=== PATIENT | male | born 1990 | race Caucasian/White ===

== ENCOUNTER → 2020-07-10 15:26 | Outpatient (BNVA) | payer MEDICAID, SELFPAY | PROVIDERS: PCP Internal Medicine; Referring Provider Internal Medicine; Visit Provider Physician Assistant | DX: E65 Localized adiposity (principal); Z98.84 Bariatric surgery status | CPT/HCPCS: 99212 ==

== ENCOUNTER 2020-08-03 11:46 | Outpatient (REF) | payer MEDICAID, SELFPAY ==
[2020-08-03 12:24] LABS: Basophils Percent Auto 0.6 % (0-2); Eosinophils Percent Auto 0.6 % (0-4); Hematocrit 40.2 % (42-52); Hemoglobin 13.7 g/dl (14.0-18.0); Imm Gran Abs Auto 0.01 X10*3/uL (0.00-0.03); Imm Gran Pct Auto 0.2 % (0.0-0.4); Lymphocytes Absolute Auto 1.4 X10*3/uL (1.2-4.9); Lymphocytes Percent Auto 27.3 % (20-40); MANUAL DIFF FLAG NO; Mean Corpuscular HGB Conc 34.1 g/dl (31.0-36.0); Mean Corpuscular Hemoglobin 27.8 pg (27.0-33.0); Mean Corpuscular Volume 81.7 fL (80-98); Mean Platelet Volume 10.2 fL (9.4-12.4); Monocytes Absolute Auto 0.5 X10*3/uL (0.1-1.2); Monocytes Percent Auto 8.6 % (2-11); Neutrophils Absolute Auto 3.3 X10*3/uL (2.0-8.3); Neutrophils Percent Auto 62.7 % (45-73); Platelet Count 337 X10*3/uL (160-400); Red Blood Count 4.92 X10*6/uL (4.60-5.80); Red Cell Distribution Width 13.2 % (11.0-16.0); White Blood Count 5.2 X10*3/uL (4.8-10.8)
[2020-08-03 12:51] LABS: Cholesterol 134 mg/dL; HDL Cholesterol 60 mg/dL; Iron 185 mcg/dL (45-160); LDL Cholesterol Calculated 63 mg/dl; Percent Iron Saturation 68 % (15-50); Total Iron Binding Capacity 274 mcg/dL (228-428); Triglycerides 55 mg/dL; Unsaturated Iron Binding 89 ug/dL
[2020-08-03 12:59] LABS: Estimated Average Glucose 105 mg/dL; Hemoglobin A1c % 5.3 %
[2020-08-03 13:12] LABS: Ferritin 156 ng/mL (20-250); TSH reflex Free T4 0.34 mIU/mL (0.32-4.0); Vitamin D 25-OH Total 23.5 ng/mL (>30)
[2020-08-03 13:24] LABS: Folate 7.1 ng/mL (> or = 4.0); Vitamin B12 979 pg/mL (200-900)
[2020-08-04 15:07] LABS: Calcium (PTHI) 9.6 mg/dL (8.6-10.3); PTHI 40 pg/mL (14-64)
[2020-08-06 05:52] LABS: Zinc 103 mcg/dL (60-130)
[2020-08-08 20:58] LABS: Vitamin A 49 mcg/dL (38-98)
[2020-08-09 12:57] LABS: Vitamin B1 8 nmol/L (8-30)
== END 2020-08-03 11:47 | disposition home or self-care (01) ==
LOC: HO.LAB 11:46
PROVIDERS: PCP Internal Medicine; Visit Provider Physician Assistant
DX: M32.9 Systemic lupus erythematosus, unspecified (principal); E66.3 Overweight; Z68.35 Body mass index [BMI] 35.0-35.9, adult; Z98.84 Bariatric surgery status
CPT/HCPCS: 36415; 80061; 82306; 82607; 82728; 82746; 83036; 83525; 83540; 83970; 84425; 84443; 84590; 84630; 85025; 86140

== ENCOUNTER → 2020-08-27 09:27 | Outpatient (BNVA) | payer MEDICAID, SELFPAY | PROVIDERS: PCP Internal Medicine; Referring Provider Internal Medicine; Visit Provider Physician Assistant | DX: Z76.89 Persons encountering health services in other specified circumstances (principal) ==

== ENCOUNTER → 2022-07-05 14:43 | Outpatient (BNVA) | payer MEDICAID, SELFPAY | PROVIDERS: PCP Internal Medicine; Visit Provider Physician Assistant Surgical | DX: E66.3 Overweight (principal); L98.7 Excessive and redundant skin and subcutaneous tissue; Z68.28 Body mass index [BMI] 28.0-28.9, adult; Z90.3 Acquired absence of stomach [part of] | CPT/HCPCS: 99212 ==

== ENCOUNTER → 2022-08-03 15:12 | Outpatient (BNVA) | payer MEDICAID, SELFPAY | PROVIDERS: PCP Internal Medicine; Referring Provider Internal Medicine; Visit Provider Physician Assistant Surgical | DX: E66.3 Overweight (principal); L98.7 Excessive and redundant skin and subcutaneous tissue; Z90.3 Acquired absence of stomach [part of]; Z68.28 Body mass index [BMI] 28.0-28.9, adult | CPT/HCPCS: 99212 ==

== ENCOUNTER 2022-08-17 09:14 | Outpatient (REF) | payer MEDICAID, SELFPAY ==
[2022-08-17 09:42] LABS: MANUAL DIFF FLAG NO
[2022-08-17 10:03] LABS: Basophils Percent Auto 0.8 % (0-2); Eosinophils Absolute Auto 0.1 X10*3/uL (0.0-0.4); Eosinophils Percent Auto 2.1 % (0-4); Hematocrit 38.8 % (42.0-52.0); Hemoglobin 13.5 g/dl (14.0-18.0); Imm Gran Abs Auto 0.01 X10*3/uL (0.00-0.03); Imm Gran Pct Auto 0.2 % (0.0-0.4); Lymphocytes Absolute Auto 1.8 X10*3/uL (1.2-4.9); Lymphocytes Percent Auto 34.6 % (20-40); Mean Corpuscular HGB Conc 34.8 g/dl (31.0-36.0); Mean Corpuscular Hemoglobin 27.9 pg (27.0-33.0); Mean Corpuscular Volume 80.2 fL (80.0-98.0); Mean Platelet Volume 10.3 fL (9.4-12.4); Monocytes Absolute Auto 0.5 X10*3/uL (0.1-1.2); Monocytes Percent Auto 9.6 % (2-11); Neutrophils Absolute Auto 2.7 x10*3/uL (2.0-8.3); Neutrophils Percent Auto 52.7 % (45-73); Platelet Count 303 X10*3/uL (160-400); Red Blood Count 4.84 X10*6/uL (4.60-5.80); Red Cell Distribution Width 13.1 % (11.0-16.0); White Blood Count 5.2 X10*3/uL (4.8-10.8)
[2022-08-17 10:39] LABS: Estimated Average Glucose 100 mg/dL; Hemoglobin A1c % 5.1 %
[2022-08-17 11:11] LABS: Alanine Aminotransferase 21 U/L (0-40); Albumin Level 4.2 g/dL (3.5-5.0); Alkaline Phosphatase 52 U/L (39-117); Anion Gap 9 (12-20); Aspartate Amino Transferase 15 U/L (5-37); Bilirubin Total 0.9 mg/dL (0.0-1.0); Blood Urea Nitrogen 9 mg/dL (9-16); C Reactive Protein < 0.10 mg/dL (< or = 0.50); Calcium 9.3 mg/dL (8.4-10.2); Carbon Dioxide 30 mmol/L (22-29); Chloride 104 mmol/L (96-108); Cholesterol 148 mg/dL; Estimated Glomerular Filt Rate > 60; Ferritin 103 ng/mL (20-250); Glucose Random 103 mg/dL (60-115); HDL Cholesterol 57 mg/dL; Insulin 7 uU/mL (2-29); Iron 136 mcg/dL (45-160); LDL Cholesterol Calculated 79 mg/dl; Percent Iron Saturation 52 % (15-50); Potassium 4.1 mmol/L (3.3-5.1); Sodium 139 mmol/L (135-145); TSH reflex Free T4 0.85 uIU/mL (0.32-4.0); Total Iron Binding Capacity 260 mcg/dL (228-428); Total Protein 6.7 g/dL (6.5-8.0); Triglycerides 63 mg/dL; Unsaturated Iron Binding 124 ug/dL
[2022-08-17 11:12] LABS: Folate 11.4 ng/mL (> or = 4.0); Vitamin B12 899 pg/mL (200-900)
[2022-08-18 14:14] LABS: Calcium (PTHI) 9.5 mg/dL (8.6-10.3); PTHI 59 pg/mL (16-77)
[2022-08-22 02:29] LABS: Zinc 67 mcg/dL (60-130)
[2022-08-23 10:39] LABS: Vitamin A 51 mcg/dL (38-98)
[2022-08-24 15:54] LABS: Vitamin B1 13 nmol/L (8-30)
== END 2022-08-17 09:15 | disposition home or self-care (01) ==
LOC: HO.LAB 09:14
PROVIDERS: PCP Internal Medicine; Visit Provider Physician Assistant Surgical
DX: Z90.3 Acquired absence of stomach [part of] (principal)
CPT/HCPCS: 36415; 80053; 80061; 82306; 82607; 82728; 82746; 83036; 83525; 83540; 83970; 84425; 84443; 84590; 84630; 85025; 86140

== ENCOUNTER → 2022-09-02 08:12 | Outpatient (BNVA) | payer MEDICAID, SELFPAY | PROVIDERS: PCP Internal Medicine; Visit Provider Surgery | DX: Z13.89 Encounter for screening for other disorder (principal) ==

== ENCOUNTER 2022-09-14 11:55 | Outpatient (REF) | payer MEDICAID, SELFPAY ==
[2022-09-14 12:17] LABS: MANUAL DIFF FLAG NO
[2022-09-14 13:01] LABS: Basophils Percent Auto 0.7 % (0-2); Eosinophils Absolute Auto 0.1 X10*3/uL (0.0-0.4); Eosinophils Percent Auto 1.3 % (0-4); Hematocrit 39.4 % (42.0-52.0); Hemoglobin 13.8 g/dl (14.0-18.0); Imm Gran Abs Auto 0.03 X10*3/uL (0.00-0.03); Imm Gran Pct Auto 0.5 % (0.0-0.4); Lymphocytes Absolute Auto 1.5 X10*3/uL (1.2-4.9); Lymphocytes Percent Auto 27.7 % (20-40); Mean Corpuscular Hemoglobin 28.4 pg (27.0-33.0); Mean Corpuscular Volume 81.1 fL (80.0-98.0); Mean Platelet Volume 10.7 fL (9.4-12.4); Monocytes Absolute Auto 0.5 X10*3/uL (0.1-1.2); Monocytes Percent Auto 9.3 % (2-11); Neutrophils Absolute Auto 3.3 x10*3/uL (2.0-8.3); Neutrophils Percent Auto 60.5 % (45-73); Platelet Count 337 X10*3/uL (160-400); Red Blood Count 4.86 X10*6/uL (4.60-5.80); Red Cell Distribution Width 12.9 % (11.0-16.0); White Blood Count 5.5 X10*3/uL (4.8-10.8)
[2022-09-14 13:08] LABS: Estimated Average Glucose 94 mg/dL; Hemoglobin A1c % 4.9 %; INTERNATIONAL NORM RATIO 1.1 (0.9-1.1); Prothrombin Time 12.3 SEC (10.0-13.1)
[2022-09-14 13:10] LABS: Partial Thromboplastin Time 33.3 SEC (26.0-36.4)
[2022-09-14 13:41] LABS: Alanine Aminotransferase 20 U/L (0-40); Albumin Level 4.3 g/dL (3.5-5.0); Alkaline Phosphatase 52 U/L (39-117); Anion Gap 10 (12-20); Aspartate Amino Transferase 15 U/L (5-37); Bilirubin Total 0.8 mg/dL (0.0-1.0); Blood Urea Nitrogen 12 mg/dL (9-16); Calcium 9.6 mg/dL (8.4-10.2); Carbon Dioxide 28 mmol/L (22-29); Chloride 106 mmol/L (96-108); Estimated Glomerular Filt Rate > 60; Glucose Random 102 mg/dL (60-115); Sodium 140 mmol/L (135-145)
== END 2022-09-14 11:56 | disposition home or self-care (01) ==
LOC: HO.LAB 11:55
PROVIDERS: PCP Internal Medicine; Visit Provider Surgery
DX: K91.2 Postsurgical malabsorption, not elsewhere classified (principal); Z90.3 Acquired absence of stomach [part of]
CPT/HCPCS: 36415; 80053; 83036; 85025; 85610; 85730

== ENCOUNTER 2022-09-22 07:34 | Day surgery (SDC) | payer MEDICAID, SELFPAY ==
[2022-09-14 11:14] VITALS: BMI 27.8
--- NOTE | 2022-09-17 00:44 | MHC.SHP ---
Pre-Procedural Eval Section A Date of Service: 09/17/22 The patient is an INPATIENT: No The History & Physical has been completed within 30 days and I have reviewed it.: Yes Section B Chief Complaint: Excessive and redundant skin and subcutaneous tiss Relevant Family History (Specify if Yes): No Relevant Social History: None Present Medications: None Medical History: No relevant PMH History of Previous Operations: Relevant previous surgery/procedure and date(s) (Lap sleeve gastrectomy) Allergies: Allergies Allergy/AdvReac Type Severity Reaction Status Date / Time No Known Allergies Allergy Verified 09/14/22 10:38 Review of Systems Sugical H&P ROS: Negative: Constitution, Cardiovascular, Respiratory, Neurological, Psychiatric, Hem-Onc, Allergic/Immunologic, Gastrointestinal, Genitourinary, Musculoskeletal, Integumentary, Endocrine and Eyes/Ears/Nose/Throat Exam Surgical H&P Exam: Normal: HEENT, Normal: Heart, Normal: Lungs, Normal: Extremities, Normal: Abdomen, Normal: Skin and Normal: Neurological Plan Diagnosis/Plan: Unchanged I have reviewed the history and physical and performed a pertinent physical examination on my patient. No changes have occurred unless specified. Time Spent With Patient Time: Total time managing care of this patient today ____ minutes.
--- NOTE | 2022-09-21 10:20 | HO.ANESPROP2 ---
Documented by User: Shahnaz Flores NP 09/21/22 10:21 HPI - Anesthesia Eval Consult details Narrative: 32yo M for Panniculectomy s/p gastric sleeve 08/2019 PMF Active Problems Active Problems: All Active Problems (Updated 09/14/22 @ 10:37 by Tammie Fuller RN) History of sleeve gastrectomy (Acute) Overweight (Acute) Excess skin (Acute) Postgastrectomy malabsorption (Acute) Panniculitis (Acute) Past Medical History Medical History Hx of low back pain Lumbar disc herniation Family History Family History Father HTN (hypertension) DM (diabetes mellitus) Mother HTN (hypertension) Brother No problems noted. Brother No problems noted. Brother No problems noted. Brother No problems noted. Sister No problems noted. Son No problems noted. Surgical History Surgical History H/O tooth extraction Hx of colonoscopy S/P laparoscopic sleeve gastrectomy Social History Social History Are you a primary aged or disabled care worker to a significant other at home: No Do you presently have visiting nurse or other home services: No Alcohol intake: current Alcohol intake frequency: does not drink Patient Tobacco Use Status: Never used Tobacco Use of substances other than those prescribed or required for medical reasons: No Have you been hit, kicked, punched, or otherwise hurt by someone within the past year? If so, by whom?: No Are you DNR?: No Advance Directives: No Advance Directives Information Provided: Yes Advance Directives on File: No Recently lost weight without trying: No How much weight loss: 34pounds or more Eating poorly because of decreased appetite: No Nutrition screen score: 4 Nutrition Risks: No Nutritional Risk Poor oral hygiene: No Meds Allergies Allergy/AdvReac Type Severity Reaction Status Date / Time No Known Allergies Allergy Verified 09/14/22 10:38 Exam Exam Date and Time: September 21, 2022 1020 Height,Weight and Vital Signs: Height 5 ft 11 in Weight 90.718 kg Pertinent Lab Results Pertinent Lab Results: Laboratory Tests 09/14/22 12:10 Blood Type A Positive Antibody Screen NEGATIVE Assessment and Plan Assessment Anesthesia Assessment: Chart Reviewed Documented by User: Grace Zazueta MD 09/22/22 10:01 [facility] Past Medical History Medical History Hx of low back pain Lumbar disc herniation Family History Family History Father HTN (hypertension) DM (diabetes mellitus) Mother HTN (hypertension) Brother No problems noted. Brother No problems noted. Brother No problems noted. Brother No problems noted. Sister No problems noted. Son No problems noted. Surgical History Surgical History H/O tooth extraction Hx of colonoscopy S/P laparoscopic sleeve gastrectomy History of Problems with Anesthesia: No Social History Social History Are you a primary aged or disabled care worker to a significant other at home: No Do you presently have visiting nurse or other home services: No Alcohol intake: current Alcohol intake frequency: does not drink Patient Tobacco Use Status: Never used Tobacco Use of substances other than those prescribed or required for medical reasons: No Have you been hit, kicked, punched, or otherwise hurt by someone within the past year? If so, by whom?: No Are you DNR?: No Advance Directives: No Advance Directives Information Provided: Yes Advance Directives on File: No Recently lost weight without trying: No How much weight loss: 34pounds or more Eating poorly because of decreased appetite: No Nutrition screen score: 4 Nutrition Risks: No Nutritional Risk Poor oral hygiene: No Meds Allergies Allergy/AdvReac Type Severity Reaction Status Date / Time No Known Allergies Allergy Verified 09/14/22 10:38 Exam Airway Mallampati Class: II TM Dist: >3cm Neck ROM: Full Loose/Missing/Broken Teeth: No Heart: RRR Lungs: CTA Assessment and Plan Assessment Anesthesia Assessment: Anesthesia Plan Discussed Final Anesthetic Review History of Problems with Anesthesia: No NPO: Yes ASA Class: II Final Preanesthetic Review: Meds/Allgs Chart Reviewed, Consent Obtained/Reviewed and Anes Risks/Benef Reviewed Patient Risk: Low Procedure Risk: Intermediate Anesthetic Plan Anesthetic Plan: GA Disposition: Standard PACU
[2022-09-21 13:07] LABS: COVID-19 Test Negative (Negative); IDNOW Serial# 9DB6401D
[2022-09-22] VITALS (11 sets, daily range): BP systolic 110–143; BP diastolic 47–96; PULSE 58–124; RESP 14–18; TEMP 36.4–36.6; O2SAT 98–100
[2022-09-22] MEDS: Lactated Ringers 1,000 ML 100 ML IVCONT (08:39)
[2022-09-22] MEDS: Lactated Ringers 1,000 ML 80 ML IVCONT (08:39)
--- NOTE | 2022-09-22 11:39 | PM.OP ---
Brief Operative Note Date of Service: 09/22/22 Pre-op diagnosis: Excessive skin and panniculitis Post-op diagnosis: same Procedure: PROCEDURE: Panniculectomy with umbilical transposition and bilateral subcutaneous fat flaps INDICATION: This a 30 year old male who underwent laparoscopic sleeve gastrectomy on 08/27/2019. She had an excellent result achieving a BMI of 28 kg/m2 with a total weight loss of 89.4lbs, or 30.89% of her TBWL. As a result, she has developed panniculitis which has not resolved despite continuous use of clotrimazole ointment as well as skin irritation. On exam she has extreme skin laxity due to massive weight loss, with the abdominal pannus completely hanging 3cm below the pubis. Panniculectomy was recommended. We discussed the two options for the panniculectomy of using a combined vertical and horizontal incisions or just a horizontal (bikini) incision. It was my recommendation to do only horizontal incision based on her body habitus and skin laxity. The patient agreed with this. Risks and complications were discussed with the patient including bleeding, infection, umbilical loss, flap necrosis, asymmetry, dehiscence, seroma, VTE. The patient understood the risks and was in agreement to proceed with surgery. PROCEDURE: The incisions were appropriately marked at the preop area with the patient standing and laying down. After induction of general anesthesia a Luis catheter and pneumatic compression devices were placed. The patient was prepped and draped in the usual sterile manner and the incisions were marked again and confirmed. The skin was infiltrated with lidocaine and epinephrine. The #10 blade scalpel was used for the large incisions and the #15 blade scalpel for the umbilicus. Cautery was used to divide the subcutaneous tissues until the fascia was identified. Then I used the Thunderbeat (Olympus) to separate the pannus from the fascia. The inferior incision was made initially and I mobilized the flap for a several centimeters cephalad to the umbilicus. The umbilicus was incised circumferentially and detached from the surrounding tissues all the way to the fascia while its stalk was preserved. With the patient in reflex position I confirmed that the skin flaps were appropriate and would allow for the tissues to come together with reasonable tension. At that point a horizontal incision was made 4 cm above the umbilicus. #10 blade was used for the skin, cautery for the dermis and the Thunderbeat for the remaining tissues. A subcutaneous fat flap was raised from the upper skin flap in order to fill the space under the skin and support the closure of the two flaps. In addition the inferior flap was mobilized caudally for a few centimeters to create a space for the subcutaneous fat flap as well as relieve tension from the closure. A circumferential incision was made at the area where the umbilicus would be re-implanted. The umbilicus was appropriately oriented and was delivered through the defect and was secured in place with a Burr. No bleeding was noted anywhere. One MARINA drain was placed from the left corner of the horizontal incision across the wound and was secured in place with a silk suture. A total of 14ml of Zynrelef was applied on top of the fascia and under the subcutaneous fat flaps. The subcutaneous fat flap was secured under the inferior flap with several interrupted 3.0 Monocryl sutures. The two flaps were brought together and were attached at the midline of the horizontal incision with a #3.0 Monocryl suture. At that point the umbilicus was properly oriented and was re-approximated to the skin with 8 interrupted 3.0 Monocryl sutures. In a similar fashion the skin flaps were re-approximated with multiple 3.0 Monocryl sutures. The skin was closed in all incisions and umbilicus with 4.0 Monocryl sutures. Steri-strips, xeroform gauzes and gauzes were used to cover the incisions. An abdominal binder was also placed. The was awaken and was transferred to the recover room in a stable condition. I was present and performed the entire procedure. Susannah Donnelly was the corporate administrative assistant. Jose De Jesus Morales MD, PhD, FACS Surgeon: Tae Morales MD Surgeon: Tae Morales MD Anesthesia: GETA, local and other (14ml Zynrelef) Was an Patient Care Coordinator used for this Procedure?: No Patient Care Coordinator: Janak Donnelly Estimated blood loss (mL): 10 IV fluids (mL): 2,700 Urine output (mL): 0 Pathology: other (Abdominal pannus) Condition: stable Disposition: PACU
[2022-09-22] MEDS: HYDROmorphone HCl 0.5 MG/0.5 ML SYRINGE 0.25 MG IVPUSH ×2 (16:18→16:30)
--- NOTE | 2022-09-23 13:04 | W.MHC.F2F ---
Service Date Service Date: 09/23/22 Encounter Date of encounter: 09/22/22 Reasons for Services Signs and symptoms assessed: abdominal incision Reason for long term: postoperative assessment and/or care Homebound: Leaving the home is medically contraindicated at this time without the asist of a device and/or another person due th the listed conditions above and below. Reason homebound: unable to drive Certification: Based on the above findings, I certify that this patient is confined to the home and needs intermittent long term care, physical therapy and/or speech therapy, or continues to need occupational therapy. The patient is under my care, and I have initiated the establishment of the plan of care. The patient will be followed by a physician who will periodically review the plan of care. Time Spent With Patient Time: Total time managing care of this patient today ____ minutes.
== END 2022-09-22 18:10 ==
LOC: HO.SSS 07:34
PROVIDERS: Physician Assistant Surgical; PCP Internal Medicine; Visit Provider Surgery
PROC: 0JB80ZZ Excision of Abdomen Subcutaneous Tissue and Fascia, Open Approach (ICD-10-PCS; CPT 15830; principal; 2022-09-22 10:30)
DX: L98.7 Excessive and redundant skin and subcutaneous tissue (principal); M79.3 Panniculitis, unspecified; K91.2 Postsurgical malabsorption, not elsewhere classified; Z90.3 Acquired absence of stomach [part of]; Z98.84 Bariatric surgery status; Z20.822 Contact with and (suspected) exposure to COVID-19
CPT/HCPCS: 15830; 15847; 36415; 80053; 83036; 85025; 85610; 85730; 86850; 86900; 86901; 87635; 88304; C9088; J0131; J0690; J1100; J1170; J2250; J2405; J3010; J3370

== ENCOUNTER → 2022-09-30 08:46 | Outpatient (BNVA) | payer MEDICAID, SELFPAY | PROVIDERS: PCP Internal Medicine; Visit Provider Physician Assistant Surgical | DX: E66.3 Overweight (principal); Z68.27 Body mass index [BMI] 27.0-27.9, adult; Z98.84 Bariatric surgery status; Z90.3 Acquired absence of stomach [part of] | CPT/HCPCS: 99212 ==

== ENCOUNTER → 2022-10-10 09:18 | Outpatient (BNVA) | payer MEDICAID, SELFPAY | PROVIDERS: PCP Internal Medicine; Visit Provider Physician Assistant Surgical | DX: E66.3 Overweight (principal); Z68.27 Body mass index [BMI] 27.0-27.9, adult; Z98.84 Bariatric surgery status; Z98.890 Other specified postprocedural states | CPT/HCPCS: 99212 ==

== ENCOUNTER → 2022-10-12 12:26 | Outpatient (BNVA) | payer MEDICAID, SELFPAY | PROVIDERS: PCP Internal Medicine; Referring Provider Internal Medicine; Visit Provider Physician Assistant Surgical | DX: E66.3 Overweight (principal); Z90.3 Acquired absence of stomach [part of]; Z98.890 Other specified postprocedural states | CPT/HCPCS: 99212 ==

== ENCOUNTER → 2022-10-18 10:00 | Outpatient (BNVA) | payer MEDICAID, SELFPAY | PROVIDERS: PCP Internal Medicine; Visit Provider Physician Assistant Surgical | DX: E66.3 Overweight (principal); Z68.27 Body mass index [BMI] 27.0-27.9, adult; Z90.3 Acquired absence of stomach [part of]; Z98.890 Other specified postprocedural states | CPT/HCPCS: 99212 ==

== ENCOUNTER → 2022-11-07 09:03 | Outpatient (BNVA) | payer MEDICAID, SELFPAY | PROVIDERS: PCP Internal Medicine; Visit Provider Physician Assistant Surgical | DX: E66.3 Overweight (principal); Z90.3 Acquired absence of stomach [part of]; Z98.890 Other specified postprocedural states; Z68.27 Body mass index [BMI] 27.0-27.9, adult | CPT/HCPCS: 99212 ==

== ENCOUNTER → 2022-11-18 13:34 | Outpatient (BNVA) | payer MEDICAID, SELFPAY | PROVIDERS: PCP Internal Medicine; Visit Provider Physician Assistant Surgical | DX: E66.9 Obesity, unspecified (principal); R18.8 Other ascites; Z68.27 Body mass index [BMI] 27.0-27.9, adult; Z98.890 Other specified postprocedural states | CPT/HCPCS: 99212 ==

== ENCOUNTER 2022-12-09 12:25 | Outpatient (REF) | payer MEDICAID, SELFPAY ==
--- NOTE | ~2022-12-09 | US_ITS ---
EXAMINATION: US PELVIC, LIMITED/FOLLOW UP CLINICAL INFORMATION: Lower abdominal discomfort under hemicolectomy. COMPARISON: None available. TECHNIQUE: Limited ultrasound imaging was performed midline pelvis 3 cm inferior to umbilicus. FINDINGS: There is a complex cystic fluid collection with internal echoes seen in the palpable area likely a small seroma. No increased vascularity seen. US/US pelvic limited IMPRESSION: Likely small seroma inferior to umbilicus in midline abdomen.
== END 2022-12-09 12:26 | disposition home or self-care (01) ==
LOC: HO.US 12:25
PROVIDERS: PCP Internal Medicine; Visit Provider Physician Assistant Surgical
DX: R19.00 Intra-abdominal and pelvic swelling, mass and lump, unspecified site (principal)
CPT/HCPCS: 76857

== ENCOUNTER → 2022-12-16 12:26 | Outpatient (BNVA) | payer MEDICAID, SELFPAY | PROVIDERS: PCP Internal Medicine; Visit Provider Physician Assistant Surgical | DX: L76.34 Postprocedural seroma of skin and subcutaneous tissue following other procedure (principal) | CPT/HCPCS: 99212 ==

== ENCOUNTER → 2023-01-03 11:21 | Outpatient (BNVA) | payer MEDICAID, SELFPAY | PROVIDERS: PCP Internal Medicine; Visit Provider Physician Assistant Surgical | DX: E66.3 Overweight (principal); R18.8 Other ascites; Z90.3 Acquired absence of stomach [part of]; Z98.890 Other specified postprocedural states; Z68.27 Body mass index [BMI] 27.0-27.9, adult | CPT/HCPCS: 99212 ==

== ENCOUNTER 2023-01-24 08:28 | Outpatient (REF) | payer MEDICAID, SELFPAY ==
--- NOTE | ~2023-01-24 | CT_ITS ---
EXAMINATION: CT ABDOMEN AND PELVIS WITH CONTRAST CLINICAL INFORMATION: Ascites. COMPARISON: Pelvic ultrasound 12/09/2022. There is a complex cystic fluid collection with internal echoes seen in the palpable area likely a small seroma. Abdominal ultrasound 08/19/2019. TECHNIQUE: Multidetector volumetric images were obtained from the superior aspect of the liver through the pubic symphysis following administration 85 mL of Omnipaque 350 intravenous contrast. Sagittal and coronal reformatted images were obtained on the technologist's workstation. Oral contrast: No This CT examination was performed using dose optimization techniques as appropriate, variously including the following: *Automated exposure control *Adjustment of mA and/or kV according to patient size (this includes techniques or standardized protocols for targeted exams where dose is matched to indication/reason for exam; i.e. extremities or head) *Use of iterative reconstruction technique DLP: 504 mGy-cm FINDINGS: LUNG BASES: The visualized lung bases show no worrisome finding. 2 tiny 1 to 2 mm sized punctate densities, possibly calcified, at the right lung base (6:3 and 9). LIVER, GALLBLADDER, AND BILIARY TREE: The liver is normal in size, shape, and attenuation. No focal hepatic lesion or biliary ductal dilatation is present. The gallbladder is contracted but otherwise unremarkable with no evidence of radiopaque gallstones, gallbladder wall thickening, or obvious pericholecystic inflammatory changes. PANCREAS: Unremarkable. SPLEEN: Unremarkable. ADRENAL GLANDS: Unremarkable. KIDNEYS AND URETERS: The kidneys are normal in size, shape, and attenuation. No hydronephrosis, hydroureter, or calculi seen. No perinephric stranding. BLADDER: Unremarkable. GASTROINTESTINAL TRACT: Postsurgical changes are seen in the stomach with question of a gastric sleeve. The small and large bowel are unremarkable. The appendix is present it is quite small. There is no evidence of appendicitis. ABDOMINAL WALL: There is a midline abdominal wall fluid collection seen in the infraumbilical region corresponding to the collection seen on the ultrasound. This measures 8.1 x 4.6 x 7.4 cm. At the time of the prior ultrasound, this was larger measuring 9.5 x 9.0 x 4.0 cm. The collection has a mildly thickened wall at about 3 mm. Some surrounding inflammatory change is seen, along with a few surgical clips. Findings are consistent with a seroma. No fistulous connections to abdominal or pelvic contents seen. LYMPH NODES: No retroperitoneal lymphadenopathy. VASCULAR: Unremarkable. PELVIC VISCERA: The prostate and seminal vesicles are unremarkable. OSSEOUS STRUCTURES: Unremarkable. CT/CT abdomen pelvis w IV con IMPRESSION: 1. Fluid collection in the anterior abdominal wall consistent with a seroma decreased in size when compared to the 12/09/2022 ultrasound. 2. Other incidental findings as described above. Fleischner guidelines were followed.
[2023-01-24] MEDS: iohexoL 350 MG/ML 100 ML INFUS..BTL IV (10:41)
[2023-01-24] MEDS: Barium Sulfate Oral (Mocha) 450 ML ORAL.SUSP 900 ML PO (10:42)
== END 2023-01-24 08:29 | disposition home or self-care (01) ==
LOC: HO.CT 08:28
PROVIDERS: PCP Internal Medicine; Visit Provider Physician Assistant Surgical
DX: R18.8 Other ascites (principal); Z98.890 Other specified postprocedural states
CPT/HCPCS: 74177; Q9967

== ENCOUNTER → 2023-01-27 13:48 | Outpatient (BNVA) | payer MEDICAID, SELFPAY | PROVIDERS: PCP Internal Medicine; Visit Provider Physician Assistant Surgical | DX: E66.3 Overweight (principal); R18.8 Other ascites; Z90.3 Acquired absence of stomach [part of]; Z98.890 Other specified postprocedural states; Z68.28 Body mass index [BMI] 28.0-28.9, adult | CPT/HCPCS: 99212 ==

== ENCOUNTER 2023-02-02 14:40 | Outpatient (REF) | payer MEDICAID, SELFPAY ==
--- NOTE | ~2023-02-02 | US_ITS ---
PROCEDURE: US-GUIDED FINE NEEDLE ASPIRATION - ABDOMINAL WALL SEROMA DRAINAGE CLINICAL INFORMATION: Abdominal wall seroma post surgery, in September 2022. COMPARISON: CT abdomen and pelvis 01/24/2023. TECHNIQUE/PROCEDURE: Following explaining ultrasound-guided abdominal wall seroma drainage procedure, benefits and risk, a written consent was obtained. Patient was placed supine on ultrasound stretcher and preliminary ultrasound imaging was obtained. An optimal site was selected and marked midline in the infraumbilical region. The area was cleaned and draped in the usual sterile manner with 2% chlorhexidine solution. 1% lidocaine was injected at the puncture site. Through a small skin incision, a 5-Turkmen short FoneSenseeh catheter was advanced from the skin into the collection and several directions to loosen the septations. The stylet was withdrawn and catheter connected to vacuum bottle via connecting cannula. After obtaining a significant amount of red dark fluid, the catheter was withdrawn and complete hemostasis achieved. Simple dressing applied postprocedure. Patient tolerated the procedure extremely well. US/US guided fine needle asp FINDINGS/IMPRESSION: There is a large multiloculated seroma along infraumbilical segment of abdominal wall. Approximately 100 mL of reddish dark fluid was drained under ultrasound guidance from this loculated collection. None of the fluid was sent to lab.
[2023-02-02] MEDS: Lidocaine HCl 1 % MPF 5 ML VIAL SUBCUT (16:01)
== END 2023-02-02 14:41 | disposition home or self-care (01) ==
LOC: HO.US 14:40
PROVIDERS: PCP Internal Medicine; Visit Provider Physician Assistant Surgical
DX: R18.8 Other ascites (principal)
CPT/HCPCS: 10005

== ENCOUNTER → 2023-02-07 11:25 | Outpatient (BNVA) | payer MEDICAID, SELFPAY | PROVIDERS: PCP Internal Medicine; Visit Provider Physician Assistant Surgical | DX: E66.3 Overweight (principal); Z68.28 Body mass index [BMI] 28.0-28.9, adult; Z98.84 Bariatric surgery status; Z90.3 Acquired absence of stomach [part of]; Z98.890 Other specified postprocedural states | CPT/HCPCS: 99212 ==

== ENCOUNTER → 2023-02-21 09:05 | Day surgery (SDC) | payer MEDICAID, SELFPAY ==
--- NOTE | ~2023-02-21 | US_ITS ---
EXAMINATION: Ultrasound-guided drain CLINICAL INFORMATION: recurrent abdominal wall seroma after panniculectomy COMPARISON: Previous ultrasound guided aspiration 02/02/[address] of the abdomen and pelvis 01/24/2023 TECHNIQUE: Procedure and risks and benefits including bleeding and infection were discussed with the patient and informed consent was obtained. The right lower abdominal abdomen was prepped and draped in the usual sterile fashion. The skin and soft tissues were anesthetized with 1% lidocaine plain. Using ultrasound guidance and a 5 [place] one-step system, access to the fluid collection was obtained. Over an 035 wire, an 8.5 [place] pigtail drain was positioned. 50 mL of old bloody fluid was aspirated. Specimen was sent for Gram stain and culture. Patient received Versed 1 mg and fentanyl 50 mcg intravenously during the procedure. Conscious sedation was provided by registered nurse under my direct supervision with continuous hemodynamic monitoring. Total [id number] contact sedation time was 25 minutes. FINDINGS: There is a complex multiloculated fluid collection in the lower abdominal wall. This measures approximately 4 x x 7 cm in longitudinal, AP and transverse dimension and has a thick wall. This is similar-appearing to 02/02/2023 exam. US/US guided fine needle asp IMPRESSION: Ultrasound-guided drainage of complex multiloculated fluid collection in the lower abdominal wall.
--- NOTE | ~2023-02-21 | US_ITS ---
EXAMINATION: Ultrasound-guided drain CLINICAL INFORMATION: recurrent abdominal wall seroma after panniculectomy COMPARISON: Previous ultrasound guided aspiration 02/02/[address] of the abdomen and pelvis 01/24/2023 TECHNIQUE: Procedure and risks and benefits including bleeding and infection were discussed with the patient and informed consent was obtained. The right lower abdominal abdomen was prepped and draped in the usual sterile fashion. The skin and soft tissues were anesthetized with 1% lidocaine plain. Using ultrasound guidance and a 5 [place] one-step system, access to the fluid collection was obtained. Over an 035 wire, an 8.5 [place] pigtail drain was positioned. 50 mL of old bloody fluid was aspirated. Specimen was sent for Gram stain and culture. Patient received Versed 1 mg and fentanyl 50 mcg intravenously during the procedure. Conscious sedation was provided by registered nurse under my direct supervision with continuous hemodynamic monitoring. Total [id number] contact sedation time was 25 minutes. FINDINGS: There is a complex multiloculated fluid collection in the lower abdominal wall. This measures approximately 4 x x 7 cm in longitudinal, AP and transverse dimension and has a thick wall. This is similar-appearing to 02/02/2023 exam. US/US drain soft tissue w imaging IMPRESSION: Ultrasound-guided drainage of complex multiloculated fluid collection in the lower abdominal wall.
[2023-02-21 09:19] VITALS: BMI 26.9
[2023-02-21 10:03] LABS: MANUAL DIFF FLAG NO
[2023-02-21 10:11] LABS: Basophils Percent Auto 0.6 % (0-2); Eosinophils Absolute Auto 0.1 X10*3/uL (0.0-0.4); Eosinophils Percent Auto 1.9 % (0-4); Hematocrit 38.2 % (42.0-52.0); Hemoglobin 13.1 g/dl (14.0-18.0); Imm Gran Abs Auto 0.01 X10*3/uL (0.00-0.03); Imm Gran Pct Auto 0.2 % (0.0-0.4); Lymphocytes Absolute Auto 1.5 X10*3/uL (1.2-4.9); Lymphocytes Percent Auto 28.6 % (20-40); Mean Corpuscular HGB Conc 34.3 g/dl (31.0-36.0); Mean Corpuscular Hemoglobin 27.3 pg (27.0-33.0); Mean Corpuscular Volume 79.6 fL (80.0-98.0); Mean Platelet Volume 10.2 fL (9.4-12.4); Monocytes Absolute Auto 0.6 X10*3/uL (0.1-1.2); Monocytes Percent Auto 11.8 % (2-11); Neutrophils Percent Auto 56.9 % (45-73); Platelet Count 278 X10*3/uL (160-400); Red Cell Distribution Width 13.5 % (11.0-16.0); White Blood Count 5.2 X10*3/uL (4.8-10.8)
[2023-02-21 10:23] LABS: Anion Gap 11 (12-20); Blood Urea Nitrogen 9 mg/dL (9-16); Carbon Dioxide 29 mmol/L (22-29); Chloride 106 mmol/L (96-108); Creatinine Clr Calc Pharmacy 141.5; Estimated Glomerular Filt Rate > 60; Potassium 4.1 mmol/L (3.3-5.1); Sodium 142 mmol/L (135-145)
[2023-02-21 10:31] LABS: Partial Thromboplastin Time 31.4 SEC (26.0-36.4)
--- NOTE | 2023-02-21 11:31 | HO.RADPN ---
RADIOLOGY Narrative Narrative: Complex multiloculated post op abdoninal wall fluid collection. 8.5 fr drain placed. 50mL old blood aspirated. Drain left in place, culture sent.
[2023-02-21 11:35] VITALS: BP 111/70; PULSE 51; RESP 16; TEMP 36.8; O2SAT 100
[2023-02-21] MEDS: Lidocaine HCl 1 % MPF 5 ML VIAL SUBCUT (11:43)
[2023-02-21 11:50] VITALS: BP 126/70; PULSE 51; RESP 16; O2SAT 100
[2023-02-21 12:15] VITALS: BP 128/75; PULSE 55; RESP 18; O2SAT 100
[2023-02-21] MEDS: Acetaminophen 325 MG TABLET 650 MG PO (12:21)
[2023-02-21] MEDS: oxyCODONE HCl Immed Release 5 MG TABLET PO (12:21)
[2023-02-21 12:30] VITALS: BP 120/80; PULSE 55; RESP 16; TEMP 36.9; O2SAT 100
--- NOTE | 2023-02-21 13:22 | W.MHC.F2F ---
Service Date Service Date: 02/21/23 Encounter Date of encounter: 02/21/23 Reasons for Services Signs and symptoms assessed: s/p IR placement of drain for abdominal fluid collection Reason for group home: other (routine drain care; please empty bulb daily and record volume of output; please flush daily with normal saline) Homebound: Leaving the home is medically contraindicated at this time without the asist of a device and/or another person due th the listed conditions above and below. Reason homebound: unable to drive Certification: Based on the above findings, I certify that this patient is confined to the home and needs intermittent group home care, physical therapy and/or speech therapy, or continues to need occupational therapy. The patient is under my care, and I have initiated the establishment of the plan of care. The patient will be followed by a physician who will periodically review the plan of care. Time Spent With Patient Time: Total time managing care of this patient today __20__ minutes.
== END | disposition home or self-care (01) ==
PROVIDERS: Radiology Diagnostic Radiology; PCP Internal Medicine; Visit Provider Physician Assistant Surgical
DX: L76.34 Postprocedural seroma of skin and subcutaneous tissue following other procedure (principal); Z90.3 Acquired absence of stomach [part of]; Z98.890 Other specified postprocedural states; Z98.84 Bariatric surgery status; E66.3 Overweight; Z68.28 Body mass index [BMI] 28.0-28.9, adult; Z79.899 Other long term (current) drug therapy
CPT/HCPCS: 10005; 10030; 36415; 80051; 82565; 84520; 85025; 85610; 85730; 87070; 87073; 87205; 99152; 99153; C1729; C1769; J2250; J3010

== ENCOUNTER → 2023-02-21 10:30 | Outpatient (BNV) | payer MEDICAID, SELFPAY | PROVIDERS: PCP Internal Medicine; Visit Provider Radiology Diagnostic Radiology | DX: L76.34 Postprocedural seroma of skin and subcutaneous tissue following other procedure (principal) | CPT/HCPCS: 10030 ==

== ENCOUNTER → 2023-02-22 11:11 | Outpatient (BNVA) | payer MEDICAID, SELFPAY | PROVIDERS: PCP Internal Medicine; Visit Provider Physician Assistant Surgical ==

== ENCOUNTER → 2023-02-23 11:16 | Outpatient (BNVA) | payer MEDICAID, SELFPAY | PROVIDERS: PCP Internal Medicine; Visit Provider Physician Assistant Surgical ==

== ENCOUNTER 2023-03-02 11:07 | Outpatient (AMB) | payer MEDICAID, SELFPAY ==
--- NOTE | 2023-03-02 11:33 | A.OFFVIS_ITS ---
Intake VS Expanded 03/02/23 11:37 Height 5 ft 11 in Weight 201 lb 9.6 oz BMI 28.1 BP 132/75 Blood Pressure Location Rt brachial Blood Pressure Position Sitting Pulse 58 Pulse Source Pulse Oximeter Temp 97.3 F Temperature Source Temporal Artery Scan Pulse Oximetry 97 Oxygen Delivery Method Room Air Body Fat 56.4 Body Fat Percentage 28.0 Free Fat Mass 145.0 Muscle Mass 137.8 Visceral Mass 9.0 Water Mass 100.8 BMR 1,965 Intake Visit Reasons: (OV) abd wall seroma Allergies No Known Allergies Allergy (Verified 03/02/23 11:34) Medication List - Last Reconciled 03/02/23 by BURKE Oconnor cholecalciferol (vitamin D3) 125 mcg PO DAILY ciprofloxacin HCl 500 mg PO BID cyclobenzaprine 5 mg PO TID PRN lidocaine 5% (Lidoderm) 1 patch topical DAILY HPI HPI Comments History of Present Illness Details Pt seen in followup of IR drain placement 02/21/2023 for abdominal wall seroma after panniculectomy. He has been flushing the drain daily at home. Output over the last 5 days has been 15-20cc. No fevers at home. Continues on abx which were refilled earlier this week. PFSH Medical History Hx of low back pain Lumbar disc herniation Surgical History H/O tooth extraction Hx of colonoscopy S/P laparoscopic sleeve gastrectomy S/P panniculectomy Family History Father HTN (hypertension) DM (diabetes mellitus) Mother HTN (hypertension) Brother No problems noted. Brother No problems noted. Brother No problems noted. Brother No problems noted. Sister No problems noted. Son No problems noted. Social History Are you a primary child care team lead to a significant other at home: No Do you presently have visiting nurse or other home services: No Alcohol intake: current Alcohol intake frequency: does not drink Patient Tobacco Use Status: Never used Tobacco Physical Exam Vital Signs: Last Vital Signs Temp 97.3 F 03/02/23 11:37 Pulse 58 03/02/23 11:37 BP 132/75 03/02/23 11:37 Pulse Ox 97 03/02/23 11:37 Oxygen Delivery Method Room Air 03/02/23 11:37 BMI result Body Mass Index 28.1 Const General: cooperative, comfortable and no acute distress Orientation/consciousness: patient oriented x3 GI Other: soft, panniculectomy incision well healed, drain site clean without erythema or drainage, drain output SS, mild induration to left side of drain site without erythema, mildly tender Neuro General: patient oriented x3 Assessment & Plan Assessment & Plan (1) Abdominal fluid collection: Code(s): R18.8 - Other ascites (2) S/P panniculectomy: Comment: 09/22/22 Tae Morales MD Code(s): Z98.890 - Other specified postprocedural states (3) Overweight: Code(s): E66.3 - Overweight (4) History of sleeve gastrectomy: Code(s): Z90.3 - Acquired absence of stomach [part of] Plan Will discuss plan for drain removal with Dr Monte- whether pt needs repeat imaging before removing. Meanwhile continue on abx. Will prescribe muscle relaxant for pt's complaint of ongoing pain and spasm. Work note provided to stay out of work while drain is in place. Pt will continue daily flushes and monitoring of drain output. Patient is s/p IR drain placement for seroma and is not considered stable at this time. I spent a total of 30 minutes reviewing/updating records, examining the patient and counseling the patient on weight management as detailed above. Medications: New cyclobenzaprine 5 mg PO TID PRN 30 tabs 1RF muscle spasm Coding Level of Care Code Est Pt Level 4 (64089) Diagnoses Abdominal fluid collection R18.8 S/P panniculectomy Z98.890 Overweight E66.3 History of sleeve gastrectomy Z90.3
[2023-03-02 11:37] VITALS: BP 132/75; PULSE 58; TEMP 36.3; O2SAT 97; BMI 28.1
== END 2023-03-02 12:11 | disposition home or self-care (01) ==
PROVIDERS: PCP Internal Medicine; Visit Provider Physician Assistant Surgical
DX: R18.8 Other ascites (principal); Z98.890 Other specified postprocedural states; E66.3 Overweight; Z90.3 Acquired absence of stomach [part of]
CPT/HCPCS: 99213; 99214

== ENCOUNTER → 2023-03-02 11:07 | Outpatient (BNVA) | payer MEDICAID, SELFPAY | PROVIDERS: PCP Internal Medicine; Visit Provider Physician Assistant Surgical | DX: E66.3 Overweight (principal); R18.8 Other ascites; Z98.890 Other specified postprocedural states; Z90.3 Acquired absence of stomach [part of]; Z68.28 Body mass index [BMI] 28.0-28.9, adult | CPT/HCPCS: 99214 ==

== ENCOUNTER → 2023-03-06 10:09 | Outpatient (BNVA) | payer MEDICAID, SELFPAY | PROVIDERS: PCP Internal Medicine; Visit Provider Physician Assistant Surgical ==

== ENCOUNTER 2023-03-06 11:25 | Outpatient (REF) | payer MEDICAID, SELFPAY ==
--- NOTE | ~2023-03-06 | US_ITS ---
EXAMINATION: US ABDOMEN LIMITED CLINICAL INFORMATION: Assess for increase fluid collection and drain placement. COMPARISON: CT dated 01/24/2023 TECHNIQUE: Real-time imaging of the right upper quadrant abdominal viscera. FINDINGS: Muskrat Trapper outlines a heterogeneous area measuring 6.7 x 2.2 x 4.6 cm. Linear echogenicity is seen within which may well represent a catheter. No internal vascularity. There is some mild peripheral vascularity is demonstrated. No significant enhanced peripheral vascularity. US/US abdomen limited IMPRESSION: The global director air and climate change OUTLINES A COMPLEX AREA OF HETEROGENEOUS ECHOGENICITY WHICH IS OVERALL HYPOECHOIC RELATIVE TO THE SURROUNDING TISSUE. This could represent a solid or very complex cystic structure Linear echogenicity seen within which may well represent the catheter.
== END 2023-03-06 11:26 | disposition home or self-care (01) ==
LOC: HO.US 11:25
PROVIDERS: PCP Internal Medicine; Visit Provider Physician Assistant Surgical
DX: R18.8 Other ascites (principal)
CPT/HCPCS: 76705; 99212

== ENCOUNTER → 2023-03-09 11:43 | Outpatient (BNVA) | payer MEDICAID, SELFPAY | PROVIDERS: PCP Internal Medicine; Visit Provider Physician Assistant Surgical | DX: R18.8 Other ascites (principal) | CPT/HCPCS: 99212 ==

== ENCOUNTER → 2023-03-16 11:55 | Outpatient (BNVA) | payer MEDICAID, SELFPAY | PROVIDERS: PCP Internal Medicine; Visit Provider Physician Assistant Surgical | DX: E66.3 Overweight (principal); R18.8 Other ascites; M79.3 Panniculitis, unspecified; Z90.3 Acquired absence of stomach [part of]; Z98.890 Other specified postprocedural states | CPT/HCPCS: 99212 ==

== ENCOUNTER 2023-03-20 14:57 | Outpatient (AMB) | payer MEDICAID, SELFPAY ==
--- NOTE | 2023-03-20 15:02 | MHC.OFFVISWM ---
Intake VS Expanded 03/20/23 15:08 Height 5 ft 11 in Weight 205 lb 6.4 oz BMI 28.6 BP 133/74 Blood Pressure Location Rt brachial Blood Pressure Position Sitting Pulse 69 Pulse Source Pulse Oximeter Temp 98.3 F Temperature Source Temporal Artery Scan Pulse Oximetry 97 Oxygen Delivery Method Room Air Body Fat 54.0 Body Fat Percentage 26.3 Free Fat Mass 151.2 Muscle Mass 143.8 Visceral Mass 8.0 Water Mass 107.0 BMR 2,056 Intake Visit Reasons: (OV) PO LSG 08/27/19 Catering Barista Required: Yes Catering Barista Name: BLAZE Maddox Information Interpreted: non-clinical & clinical Printed Circuit Board Assembly Repairer: Printed Circuit Board Assembly Repairer Present Allergies No Known Allergies Allergy (Verified 03/16/23 11:58) Medication List - Last Reconciled 03/20/23 by Phani Franklin MD cholecalciferol (vitamin D3) 125 mcg PO DAILY ciprofloxacin HCl 500 mg PO BID lidocaine 5% (Lidoderm) 1 patch topical DAILY methocarbamol 500 mg PO TID PRN HPI HPI Comments History of Present Illness Details The patient is a 32-year-old gentleman who underwent successful laparoscopic sleeve gastrectomy in 08/27/2019 with subsequent weight loss. Patient developed panniculitis requiring a panniculectomy which was performed September,. Patient's postoperative drain was removed 10/12/2022 and subsequently, he developed a seroma that was treated with percutaneous drainage. Ultrasonography confirmed drain placement 03/06/2023 in the drain was removed a few days later on 03/09/2023. The patient states that he is having pain and problems since surgery in September, he as barely worked, does not sleep due to the pain/discomfort, has ongoing discomfort the prevents him from working in that he has sought legal advice because of all of the time out of work. He stated that he has tried to get another doctor/surgeon locally, but no one will take him. I offered to facilitate a referral to the plastic surgery department at [facility]; I further explained via cop that is a tertiary care center, they have to see him for ongoing care, but the patient ultimately stated he did not wish to go to a different facility. The patient denies any fevers or chills. He notes that he is not sleeping due to discomfort. He noted that he is having discomfort more than pain. He also notes that he is depressed and seeing behavioral health this Monday due to his depression. He also states he has reached out to his PCP regarding his depression. [facility] Medical History Hx of low back pain Lumbar disc herniation Surgical History H/O tooth extraction Hx of colonoscopy S/P laparoscopic sleeve gastrectomy S/P panniculectomy Family History Father HTN (hypertension) DM (diabetes mellitus) Mother HTN (hypertension) Brother No problems noted. Brother No problems noted. Brother No problems noted. Brother No problems noted. Sister No problems noted. Son No problems noted. Social History Are you a primary care mgr to a significant other at home: No Do you presently have visiting nurse or other home services: No Alcohol intake: current Alcohol intake frequency: does not drink Patient Tobacco Use Status: Never used Tobacco Physical Exam Vital Signs: Last Vital Signs Temp 98.3 F 03/20/23 15:08 Pulse 69 03/20/23 15:08 BP 133/74 03/20/23 15:08 Pulse Ox 97 03/20/23 15:08 Oxygen Delivery Method Room Air 03/20/23 15:08 BMI result Body Mass Index 28.6 On exam, the patient is nontoxic He is in no acute respiratory distress His abdomen is soft. There is firmness in the infraumbilical midline of his incision in some tenderness but no fluctuance. There is a scant amount of erythema in the patient's right mid axillary line on the superior flap, but as noted, there is no discrete abscess. Results Reviewed Results Reviewed: Patient's diagnostic imaging including CT scan from 01/24/2023, related ultrasounds are reviewed. The last abdominal ultrasound showed scant residual fluid in some surrounding hypodense tissue which may represent fat necrosis, resolving hematoma or other non infectious pathology. Assessment & Plan Assessment & Plan (1) S/P panniculectomy: Comment: 09/22/22 Tae Morales MD Code(s): Z98.890 - Other specified postprocedural states (2) History of sleeve gastrectomy: Code(s): Z90.3 - Acquired absence of stomach [part of] (3) Abdominal fluid collection: Code(s): R18.8 - Other ascites Plan I had a long discussion with the patient explaining that, while this is not typical, the risks of infection and wound healing after any operation can result in a prolonged recovery. Since he stated he was unhappy with his care, sought corporate paralegal and other physicians who would not see him, I offered to facilitate a referral to [facility] plastic surgery and explained that is a tertiary care center, they are obligated to continue his care since that is the most important part of his appointment today. He ultimately declined stating that he did not wish 2nd opinion. I went on to explain about scar tissue/fat necrosis or hematoma in that doing another procedure might result in needing another 6-7 months of postoperative healing if the same thing occurs. I have recommended a CT scan to assess the area. Patient initially refused but by the end of the appointment stated that he would like to have the procedure done. I will see the patient back after the CT is performed. I have ordered it stat to facilitate his care in case referral to a tertiary care center is in order. Time spent with patient: 33 minute Orders: Orders CT pelvis w IV con Today R18.8 - Other ascites, Z90.3 - Acquired absence of stomach [part of], Z98.890 - Other specified postprocedural states Coding Level of Care Code Est Pt Level 4 (78985) Diagnoses S/P panniculectomy Z98.890 History of sleeve gastrectomy Z90.3 Abdominal fluid collection R18.8
[2023-03-20 15:08] VITALS: BP 133/74; PULSE 69; TEMP 36.8; O2SAT 97; BMI 28.6
== END 2023-03-20 15:30 | disposition home or self-care (01) ==
PROVIDERS: PCP Internal Medicine; Visit Provider Surgery
DX: L98.7 Excessive and redundant skin and subcutaneous tissue (principal); Z68.28 Body mass index [BMI] 28.0-28.9, adult; Z90.3 Acquired absence of stomach [part of]; Z98.84 Bariatric surgery status; R18.8 Other ascites
CPT/HCPCS: 99214

== ENCOUNTER → 2023-03-20 14:57 | Outpatient (BNVA) | payer MEDICAID, SELFPAY | PROVIDERS: PCP Internal Medicine; Visit Provider Surgery | DX: M79.3 Panniculitis, unspecified (principal); R18.8 Other ascites; Z98.890 Other specified postprocedural states; Z90.3 Acquired absence of stomach [part of] | CPT/HCPCS: 99212 ==

== ENCOUNTER 2023-03-21 13:48 | Outpatient (REF) | payer MEDICAID, SELFPAY ==
--- NOTE | ~2023-03-21 | CT_ITS ---
EXAMINATION: CT PELVIS WITH CONTRAST CLINICAL INFORMATION: Abdominal wall seroma. Assess fluid collection and for drainage placement. COMPARISON: Ultrasound pelvis 02/21/[address] abdomen pelvis 01/24/2023. TECHNIQUE: Helical scanning was performed with submillimeter collimation through the pelvis with the use of oral contrast and during bolus intravenous injection of 100 mL of Omnipaque 350 intravenous contrast. Sagittal and coronal multiplanar 2-D reconstructions were obtained. This CT examination was performed using dose optimization techniques as appropriate, variously including the following: *Automated exposure control *Adjustment of mA and/or kV according to patient size (this includes techniques or standardized protocols for targeted exams where dose is matched to indication/reason for exam; i.e. extremities or head) *Use of iterative reconstruction technique DLP: 485 mGy-cm FINDINGS: PELVIS there is a very small area of thick walled fluid collection in the anterior abdominal wall. It measures 3.4 cm wide, 5 mm in thickness and 3.2 cm in craniocaudad length. There is a thick wall of induration surrounding this combination postsurgical changes and induration. There are surgical tennille in this region as well. There is no drainage catheter seen within the small fluid collection. OSSEOUS STRUCTURES: No gross bony abnormality seen. CT/CT pelvis w IV con IMPRESSION: Comparing to previous CT 01/26/2023 there is very small area of fluid collection/seroma is seen within the anterior abdominal wall. There is more of thick granulation tissue and postoperative changes in the abdominal wall likely what is clinically palpable. No drainable fluid seen. The collection is significantly improved in size from 01/24/2023
[2023-03-21] MEDS: iohexoL 350 MG/ML 100 ML INFUS..BTL IV (14:15)
== END 2023-03-21 13:49 | disposition home or self-care (01) ==
LOC: HO.CT 13:48
PROVIDERS: PCP Internal Medicine; Visit Provider Surgery
DX: R18.8 Other ascites (principal); Z98.890 Other specified postprocedural states; Z90.3 Acquired absence of stomach [part of]
CPT/HCPCS: 72193; Q9967

== ENCOUNTER 2023-03-24 09:11 | Outpatient (AMB) | payer MEDICAID, SELFPAY ==
[2023-03-24 10:09] VITALS: BP 123/67; PULSE 53; TEMP 36.7; O2SAT 100
--- NOTE | 2023-03-24 10:09 | MHC.OFFVISWM ---
Intake VS Expanded 03/24/23 10:09 Height 5 ft 11 in BP 123/67 Blood Pressure Location Lt brachial Blood Pressure Position Sitting Pulse 53 Pulse Source Pulse Oximeter Temp 98.0 F Temperature Source Temporal Artery Scan Pulse Oximetry 100 Oxygen Delivery Method Room Air Intake Visit Reasons: (OV) PO LSG 08/27/19 Munitions Handler Required: Yes Munitions Handler Name: BLAZE Maddox Information Interpreted: non-clinical & clinical Kelp Cutter: Kelp Cutter Present Allergies No Known Allergies Allergy (Verified 03/24/23 10:12) Medication List - Last Reconciled 03/24/23 by Phani Franklin MD cholecalciferol (vitamin D3) 125 mcg PO DAILY ciprofloxacin HCl 500 mg PO BID lidocaine 5% (Lidoderm) 1 patch topical DAILY methocarbamol 500 mg PO TID PRN HPI HPI Comments History of Present Illness Details The patient is a 32-year-old gentleman who underwent successful laparoscopic sleeve gastrectomy in 08/27/2019 with subsequent weight loss. Patient developed panniculitis requiring a panniculectomy which was performed September,. Patient's postoperative drain was removed 10/12/2022 and subsequently, he developed a seroma that was treated with percutaneous drainage. Ultrasonography confirmed drain placement 03/06/2023 in the drain was removed a few days later on 03/09/2023. The patient states that he is having pain and problems since surgery in September, he as barely worked, does not sleep due to the pain/discomfort, has ongoing discomfort the prevents him from working in that he has sought legal advice because of all of the time out of work. He stated that he has tried to get another doctor/surgeon locally, but no one will take him. I offered to facilitate a referral to the plastic surgery department at [facility]; I further explained via spreader operator automatic that is a tertiary care center, they have to see him for ongoing care, but the patient ultimately stated he did not wish to go to a different facility. The patient is here for follow-up after CT of the pelvis 03/21/2023 was performed which confirmed no evidence of infection or significant fluid and healing scar tissue was noted. This was discussed with the patient. The patient denies any fevers or chills. He notes that he is now sleeping due to prescribed medication which seems to be helping him relax at night. He noted that he is having discomfort more than pain. He also notes that he is depressed and seeing behavioral health this Monday due to his depression. He also states he has reached out to his PCP regarding his depression. [facility] Medical History Hx of low back pain Lumbar disc herniation Surgical History H/O tooth extraction Hx of colonoscopy S/P laparoscopic sleeve gastrectomy S/P panniculectomy Family History Father HTN (hypertension) DM (diabetes mellitus) Mother HTN (hypertension) Brother No problems noted. Brother No problems noted. Brother No problems noted. Brother No problems noted. Sister No problems noted. Son No problems noted. Social History Are you a primary career advisor to a significant other at home: No Do you presently have visiting nurse or other home services: No Alcohol intake: current Alcohol intake frequency: does not drink Patient Tobacco Use Status: Never used Tobacco Physical Exam Vital Signs: Last Vital Signs Temp 98.0 F 03/24/23 10:09 Pulse 53 03/24/23 10:09 BP 123/67 03/24/23 10:09 Pulse Ox 100 03/24/23 10:09 Oxygen Delivery Method Room Air 03/24/23 10:09 On exam, the patient is nontoxic Patient examined supine and there is a little asymmetry comparing the right to the left where the seroma had collected under his right sided panniculectomy incision, but there is no redness, fluctuance, tenderness, induration. The patient advises there was a little discomfort to palpation Results Reviewed Results Reviewed: I reviewed the CT from 03/21/23 with the patient and explained there is expected scar tissue, no evidence of an infection or tumor. Assessment & Plan Assessment & Plan (1) S/P panniculectomy: Comment: 09/22/22 Tae Morales MD Code(s): Z98.890 - Other specified postprocedural states (2) History of sleeve gastrectomy: Code(s): Z90.3 - Acquired absence of stomach [part of] (3) Overweight: Code(s): E66.3 - Overweight Plan Via spreader operator automatic, I explained to the patient that he has normal scar tissue demonstrated on CT. There is no evidence of residual seroma. Explained that he is a little asymmetric due to ongoing healing and scar tissue on the right side, but there is nothing that needs to be done at this point. The patient continues to endorse that he wants things fixed, and I explained that full maturation of the scar tissue will take 1 year. We discussed options including that of a 2nd opinion from a plastic surgeon; the patient requested a 2nd opinion from a plastic surgeon to reassure him that all options are being presented. The patient initially discussed leaving [facility] for another practice, but is in agreement to come back and see me in 1 month; he will contact me if he seems to be getting worse and has redness, increasing pain or drainage. Orders: Orders Comprehensive Met. Panel 03/22/23 K91.2 - Postsurgical malabsorption, not elsewhere classified, R18.8 - Other ascites, Z90.3 - Acquired absence of stomach [part of], Z98.890 - Other specified postprocedural states Prealbumin 03/22/23 K91.2 - Postsurgical malabsorption, not elsewhere classified, R18.8 - Other ascites, Z90.3 - Acquired absence of stomach [part of], Z98.890 - Other specified postprocedural states Complete Blood Count Auto Diff 03/22/23 K91.2 - Postsurgical malabsorption, not elsewhere classified, R18.8 - Other ascites, Z90.3 - Acquired absence of stomach [part of], Z98.890 - Other specified postprocedural states Ferritin 03/22/23 K91.2 - Postsurgical malabsorption, not elsewhere classified, R18.8 - Other ascites, Z90.3 - Acquired absence of stomach [part of], Z98.890 - Other specified postprocedural states IRON PROFILE 03/22/23 K91.2 - Postsurgical malabsorption, not elsewhere classified, R18.8 - Other ascites, Z90.3 - Acquired absence of stomach [part of], Z98.890 - Other specified postprocedural states Transferrin 03/22/23 K91.2 - Postsurgical malabsorption, not elsewhere classified, R18.8 - Other ascites, Z90.3 - Acquired absence of stomach [part of], Z98.890 - Other specified postprocedural states Referrals Plastic Surgery Referral Z90.3 - Acquired absence of stomach [part of], Z98.890 - Other specified postprocedural states Coding Level of Care Code Est Pt Level 4 (58283) Diagnoses S/P panniculectomy Z98.890 History of sleeve gastrectomy Z90.3 Overweight E66.3
== END 2023-03-24 10:44 | disposition home or self-care (01) ==
PROVIDERS: PCP Internal Medicine; Visit Provider Surgery
DX: E66.3 Overweight (principal); Z68.28 Body mass index [BMI] 28.0-28.9, adult; Z90.3 Acquired absence of stomach [part of]; Z98.84 Bariatric surgery status
CPT/HCPCS: 99214

== ENCOUNTER 2023-03-24 09:11 | Outpatient (AMB) | payer MEDICAID, SELFPAY ==
--- NOTE | 2023-03-24 09:19 | A.OFFWM_ITS ---
Intake Intake Visit Reasons: (OV) PO LSG 08/27/19 Allergies No Known Allergies Allergy (Verified 03/24/23 10:12) PFSH Medical History Hx of low back pain Lumbar disc herniation Surgical History H/O tooth extraction Hx of colonoscopy S/P laparoscopic sleeve gastrectomy S/P panniculectomy Family History Father HTN (hypertension) DM (diabetes mellitus) Mother HTN (hypertension) Brother No problems noted. Brother No problems noted. Brother No problems noted. Brother No problems noted. Sister No problems noted. Son No problems noted. Social History Are you a primary healthcare economics consultant to a significant other at home: No Do you presently have visiting nurse or other home services: No Alcohol intake: current Alcohol intake frequency: does not drink Patient Tobacco Use Status: Never used Tobacco Behavioral Health Assessment Weight Management Therapy Therapy Notes Details PT presents for initial consultation due to sadness, low motivation and stress triggered by complications from surgery done in september. PT was referred by provider at [facility] to receive mental health support to manage symptoms. Presenting Concerns Referral Source [facility] provider, Mile TURK Reason for referral Support with current symptoms of depression and anxiety. PT has not been unable to work and his recovery has taken longer than expected. PT is uncertain about treatment plan for current issues but would like support to navigate mood issues, and being able to work on mindset as well of support with anxiety. Precipitating Event Surgery in September 2022. (panniculectomy) Living Situation Current Living Situation Own At risk of losing current housing? No Satisfied with current living situation? Yes Comments Pt lives with partner and 3 children. Food/Weight/Diet History/Relationship with dieting P had bariatric surgery in 2018. Binge Eating Do you frequently eat large amounts of food in short periods of time, not feeling physically hungry? No Do you feel out of control when you eat a large amount of food in a short period of time? No Do you eat large amounts of food rapidly and typically alone? No Night Eating Do you wake up at least once during the night to eat? No If you wake up in the night, do you find that it is necessary to eat something in order to fall back asleep? No Do you have little or no appetite in the morning and feel very hungry in the evening, often overeating between dinner and when you go to bed? No Social History Family history and relationship PT has been in a fci relationship with current partner for about 10 years. They have 1 child together, but he has been supporting her raising her 2 youngest kids. Parental/Familial senior telecommunications technician obligations 3 children. (13, 10, 7 y/o) Developmental history and status None reported. Social support partner, close friends, parents. Community support Providers, some friends. Episcopalian/Spirituality None reported. Cultural/Ethnic information Pt is from [place]. Lives in [place] since age 17. Legal Involvement and History Current or historical involvement with the legal system? Legal issues as a teen. Education Highest grade completed HS. Graduated from [employer]. Preferred learning style Learn by doing Currently enrolled in educational program? No Interested in further educational program? 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 ) Wants help to find employment? No Meaningful activities Family activities, social/night life, work-related events, travel, music. Financial Situation Describe current financial situation Comfortable and Occasional struggle Service Service? No Mental Health and Addiction Treatment Current/Past substance abuse? No Comments Social alcohol use. Haven't drink since had surgery. Current/Past addictive behavior concerns? No Psychiatric history Went to therapy as a teen after some legal issues as he was advised to go, however he only attended a few sessions. Never diagnosed with any mental health illness. Denies ever been hospitalized, and also denied any HX of SI an/or concerns around [id number]. Medical and Physical Health Summary Additional Medical History not covered in history None reported Sexual History concerns None reported Pain Screening Current pain? No Pain in the last few months? Yes Comments Adbomen pain the past months. Now he feels more uncomfortness than pain due to swollen/tender abdomen. Medications Is the patient compliant with medications? No Does the patient have Perry Guardian in place? Not applicable Does the patient use complimentary health approaches? No Trauma/Abuse History History of trauma? Yes (current challenges post-surgery.) Questionnaires PHQ-9 Over the last 2 weeks, how often have you been bothered by any of the following problems? 1. Little interest or pleasure in doing things: nearly every day 2. Feeling down, depressed, or hopeless: nearly every day 3. Trouble falling or staying asleep, or sleeping too much: more than half the days (Saying asleep.) 4. Feeling tired or having little energy: more than half the days 5. Poor appetite or overeating: more than half the days 6. Feeling bad about yourself - or that you are a failure or have let yourself or your family down: several days 7. Trouble concentrating on things, such as reading the newspaper or watching television: several days 8. Moving or speaking so slowly that other people could have noticed. Or the opposite - being so fidgety or restless that you have been moving around a lot more than usual: more than half the days 9. Thoughts that you would be better off or of hurting yourself in some way: not at all Total score: 16 Depression Screening Interpretation: Positive [id number] - PHQ-9 Billing: Yes Source: Developed by Drs. Brian Gao, Aimee Vegas, Mina Purcell and colleagues, with an educational suman from [employer]. Assessment & Plan Assessment & Plan (1) Adjustment disorder: Code(s): F43.20 - Adjustment disorder, unspecified Qualifiers: Adjustment disorder type: with mixed anxiety and depressed mood Qualified Code(s): F43.23 - Adjustment disorder with mixed anxiety and depressed mood Plan: PT will continue receiving mental health support. We will work on 1)identifying triggers and problem symtoms, 2)learning variety of constructive coping mechanisms to manage challenging sx. F/up in 2-4 weeks. Coding Level of Care Code New Pt Psy Diag Adelfo (12713) Patient Type New Diagnoses Adjustment disorder F43.23 Adjustment disorder type: with mixed anxiety and depressed mood Time Spent (min) 50
== END 2023-03-24 10:08 | disposition home or self-care (01) ==
PROVIDERS: PCP Internal Medicine; Visit Provider Counselor Mental Health
DX: F43.23 Adjustment disorder with mixed anxiety and depressed mood (principal)
CPT/HCPCS: 90791

== ENCOUNTER → 2023-03-24 09:11 | Outpatient (BNVA) | payer MEDICAID, SELFPAY | PROVIDERS: PCP Internal Medicine; Visit Provider Surgery | DX: E66.3 Overweight (principal); Z98.890 Other specified postprocedural states; Z90.3 Acquired absence of stomach [part of] | CPT/HCPCS: 99212 ==

== ENCOUNTER 2023-04-10 09:39 | Outpatient (AMB) | payer MEDICAID, SELFPAY ==
--- NOTE | 2023-04-10 09:45 | MHC.OFFVISWM ---
Intake VS Expanded 04/10/23 09:54 Height 5 ft 11 in Weight 209 lb 7.026 oz BMI 29.2 BP 120/82 Blood Pressure Location Lt brachial Blood Pressure Position Sitting Intake Visit Reasons: (OV) PO Panni 09/22/22 *ABD SWELLING/PAIN* Intake Note: Patient is seen in office for follow up visit, post panniculectomy. 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 Helper Name: Rachael SUH Information Interpreted: non-clinical & clinical Ebd Teacher: Ebd Teacher Present Accompanied by: Self / Same As Patient Allergies No Known Allergies Allergy (Verified 04/10/23 09:55) Medication List - Last Reconciled 04/10/23 by Phani Franklin MD cholecalciferol (vitamin D3) 125 mcg PO DAILY ciprofloxacin HCl 500 mg PO BID lidocaine 5% (Lidoderm) 1 patch topical DAILY methocarbamol 500 mg PO TID PRN HPI HPI Comments History of Present Illness Details The patient is a 32-year-old gentleman who underwent successful laparoscopic sleeve gastrectomy in 08/27/2019 with subsequent weight loss. Patient developed panniculitis requiring a panniculectomy which was performed September,. Patient's postoperative drain was removed 10/12/2022 and subsequently, he developed a seroma that was treated with percutaneous drainage. Ultrasonography confirmed drain placement 03/06/2023 in the drain was removed a few days later on 03/09/2023. The patient states that he is having pain and problems since surgery in September 2022, stating he as barely worked, does not sleep due to the pain/discomfort, has ongoing discomfort the prevents him from working in that he has sought legal advice because of all of the time out of work. He stated that he has tried to get another doctor/surgeon locally, but no one will take him. I offered to facilitate a referral to the plastic surgery department at [facility]; I further explained via clinical applications manager that is a tertiary care center, they have to see him for ongoing care, but the patient ultimately stated he did not wish to go to a different facility. He continues to deny pain but reports bloating and discomfort from his pants belt as well as his seatbelt. He denies any issues with constipation and notes that his bowels are moving every day. The patient did change his mind and request to be seen for a 2nd opinion, unfortunately, [facility] declined to see the patient in consultation/2nd opinion. The patient is here for follow-up after CT of the pelvis 03/21/2023 was performed which confirmed no evidence of infection or significant fluid and healing scar tissue was noted. This was discussed with the patient. The patient denies any fevers or chills. He notes that he is now sleeping due to prescribed medication which seems to be helping him relax at night. He noted that he is having discomfort more than pain. He also notes that he is depressed and seeing behavioral health this Monday due to his depression. He also states he has reached out to his PCP regarding his depression. [facility] Medical History Hx of low back pain Lumbar disc herniation Surgical History H/O tooth extraction Hx of colonoscopy S/P laparoscopic sleeve gastrectomy S/P panniculectomy Family History Father HTN (hypertension) DM (diabetes mellitus) Mother HTN (hypertension) Brother No problems noted. Brother No problems noted. Brother No problems noted. Brother No problems noted. Sister No problems noted. Son No problems noted. Social History Are you a primary care information associate to a significant other at home: No Do you presently have visiting nurse or other home services: No Alcohol intake: current Alcohol intake frequency: does not drink Patient Tobacco Use Status: Never used Tobacco Review of Systems Const All systems reviewed & are unremarkable except as noted in HPI and below Reports as per HPI Physical Exam Vital Signs: Last Vital Signs BP 120/82 04/10/23 09:54 BMI result Body Mass Index 29.2 On exam the patient is nontoxic He is a right infraumbilical panniculectomy incision is more prominent than the left. His pants and belt are tightened against the scar and I explained that this can be contributing to his discomfort. There is no erythema, seroma, fluctuance, skin breakdown. There is no tenderness on exam, but when the patient went to tuck in his shirt, he grimaced in pain. Results Reviewed Results Reviewed: I reviewed the CT from 03/21/23 with the patient and explained there is expected scar tissue, no evidence of an infection or tumor. Assessment & Plan Assessment & Plan (1) S/P panniculectomy: Comment: 09/22/22 Tae Morales MD Code(s): Z98.890 - Other specified postprocedural states (2) History of sleeve gastrectomy: Code(s): Z90.3 - Acquired absence of stomach [part of] (3) Overweight: Code(s): E66.3 - Overweight Plan [facility] plastic surgery was submitted a referral for a 2nd opinion; per office staff, they declined to see the patient stating that they do not offer second opinions. The option of a 2nd opinion at [facility] was discussed with the patient via clinical applications manager and the referral was change. The patient's complaints remain obtuse and he declined referral to Pain Management noting that he is not having pain; he notes that he can not work and has lost money due to bloating and discomfort. He declined follow-up and noted that he would like to see a plastic surgeon for a 2nd opinion even if it cost him financially, out of pocket expense. He is encouraged to help facilitate this and be proactive in his own care. I offered to schedule a follow-up appointment with his operative surgeon, Dr. Morales, so he could address his concerns with the surgeon, but the patient declined. Coding Level of Care Code Est Pt Level 4 (08574) Diagnoses S/P panniculectomy Z98.890 History of sleeve gastrectomy Z90.3 Overweight E66.3
[2023-04-10 09:54] VITALS: BP 120/82; BMI 29.2
== END 2023-04-10 10:22 | disposition home or self-care (01) ==
PROVIDERS: PCP Internal Medicine; Visit Provider Surgery
DX: E66.3 Overweight (principal); L98.7 Excessive and redundant skin and subcutaneous tissue; Z90.3 Acquired absence of stomach [part of]; Z68.29 Body mass index [BMI] 29.0-29.9, adult; Z98.84 Bariatric surgery status
CPT/HCPCS: 99214

== ENCOUNTER → 2023-04-10 09:39 | Outpatient (BNVA) | payer MEDICAID, SELFPAY | PROVIDERS: PCP Internal Medicine; Visit Provider Surgery | DX: M79.3 Panniculitis, unspecified (principal); E66.3 Overweight; Z68.29 Body mass index [BMI] 29.0-29.9, adult; Z90.3 Acquired absence of stomach [part of]; Z98.890 Other specified postprocedural states | CPT/HCPCS: 99212 ==

== ENCOUNTER 2023-04-27 12:30 | Outpatient (AMB) | payer OTHER, SELFPAY ==
--- NOTE | 2023-04-27 13:01 | MHC.WMTHER ---
Intake Intake Visit Reasons: VIDEO F/U Allergies No Known Allergies Allergy (Verified 04/10/23 09:55) PFSH Medical History Hx of low back pain Lumbar disc herniation Surgical History H/O tooth extraction Hx of colonoscopy S/P laparoscopic sleeve gastrectomy S/P panniculectomy Family History Father HTN (hypertension) DM (diabetes mellitus) Mother HTN (hypertension) Brother No problems noted. Brother No problems noted. Brother No problems noted. Brother No problems noted. Sister No problems noted. Son No problems noted. Social History Are you a primary infant childcare provider to a significant other at home: No Do you presently have visiting nurse or other home services: No Alcohol intake: current Alcohol intake frequency: does not drink Patient Tobacco Use Status: Never used Tobacco Behavioral Health Assessment Weight Management Therapy Therapy Notes Details PT presents for a f/up. PT states he's been upset and irritated due to abdominal discomfort. INTERVENTION:Active listening, processed upsetting feelings. Problem solving strategy to identify main concerns and clarify Pt's expectations. Cognitive processing therapy. This provider verified referrals placed for him and updated client on outcomes from these referrals for 2nd opinion to his concerns. RESPONSE: PT was repetitive about concerns however, was not clear about what he expects from services at [facility]. He identified 1)get referrals or 2) a new surgery to fix how he looks as what can be 2 things would resolve his concerns. PT states he is uncomfortable with bulk he has on abdomen, as also his abdomen don't look uniform. When questioned about coping skills he did;t not specified if used recommendations for sx management. PLAN:Advised client to be clear with provider and seek 2nd opinion on his own if not satisfied with [facility]-provider feedback. F/up in 1 month. Assessment & Plan Assessment & Plan (1) Adjustment disorder: Code(s): F43.20 - Adjustment disorder, unspecified Plan: PT will continue receiving mental health support. We will work on 1)identifying triggers and problem symptoms, 2)learning variety of constructive coping mechanisms to manage challenging sx. F/up in 1 month due to patient's upcoming trip. Telehealth Telehealth Location of provider rendering services: practice address Location of patient: other (At [place]. [place] Patient Identification confirmed using: Name, : Yes Telehealth method: video Patient verbally consented to treatment: Yes Patient verbally consented to billing insurance company: Yes Patient informed of any privacy concerns related to visit: Yes Minutes spent on Phone/Video with Pt.: 60 Coding Level of Care Code Established Pt Tele Psytx >53 mins (30210) Patient Type Established Diagnoses Adjustment disorder F43.20 Time Spent (min) 60
== END 2023-04-27 15:45 | disposition home or self-care (01) ==
LOC: HO.HBST 12:59
PROVIDERS: PCP Internal Medicine; Visit Provider Counselor Mental Health
DX: F43.20 Adjustment disorder, unspecified (principal)
CPT/HCPCS: 90837

== ENCOUNTER → 2023-04-27 12:30 | Outpatient (BNVA) | payer MEDICAID, SELFPAY | PROVIDERS: PCP Internal Medicine; Visit Provider Counselor Mental Health ==

== ENCOUNTER 2023-05-03 08:55 | Outpatient (AMB) | payer MEDICAID, SELFPAY ==
--- NOTE | 2023-05-03 08:56 | A.OFFVIS_ITS ---
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 He denies any pain. 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 No fevers Diet: premade Premier protein shake, lunch with salty tuna or fruits and dinner No exercise per our recommendations All records were thoroughly reviewed: panniculectomy with umbilical transposition and subcutaneous flaps on 09/22/22. Uneventful recovery and drain removed on 10/12/22 per patient's request due to discomfort. Has gained 12lbs during the first few months after surgery reporting ingestion of some high salt foods such as crackers. Developed a seroma documented by ultrasound on 12/09/[address] on 01/24/23. CT-guided aspiration of 100ml of serosanguinous material was removed on 02/02/23. The collection recurred and a US-guided drain was placed on 02/21/23. Fluid cultures were negative. Drain was removed on 03/09/23 per patient's request. Repeat CT abdomen/pelvis on 03/21/23 showed a very small residual fluid collection. [facility] Medical History Hx of low back pain Lumbar disc herniation Surgical History H/O tooth extraction Hx of colonoscopy S/P laparoscopic sleeve gastrectomy S/P panniculectomy Family History Father HTN (hypertension) DM (diabetes mellitus) Mother HTN (hypertension) Brother No problems noted. Brother No problems noted. Brother No problems noted. Brother No problems noted. Sister No problems noted. Son No problems noted. Social History Are you a primary college and career counselor to a significant other at home: No Do you presently have visiting nurse or other home services: No Alcohol intake: current Alcohol intake frequency: does not drink Patient Tobacco Use Status: Never used Tobacco Physical Exam Vital Signs: Last Vital Signs Temp 98.2 F 05/03/23 09:07 Pulse 64 05/03/23 09:07 BP 150/70 H 05/03/23 09:07 Pulse Ox 98 05/03/23 09:07 Oxygen Delivery Method Room Air 05/03/23 09:07 BMI result Body Mass Index 28.4 GI Inspection: Yes incision (all incisions have healed very well, no infection) Palpation (GI): Soft to palpation and Firmness to palpation present (GI) (mild firmness and mild tenderness at the pubic area near the midline. ) Assessment & Plan Assessment & Plan (1) Abdominal fluid collection: Code(s): R18.8 - Other ascites Plan: 1) The technical aspects of the operation I performed were thoroughly explained to to the patient. The umbilical transposition and subcutaneous flap creation were not covered by his insurance but were performed to provide a better cosmetic result and better healing. 2) Repeat CT abdomen/pelvis to confirm that there is no additional fluid collection accumulated. If the CT does not show and fluid collections, he can start exercise at the Gym doing treadmill, elliptical or stationary bike for 2000 calories. I recommended to increase slowly the intensity so he can sweat more, as this would reduce salt in his body. He can also do weight exercises with his chest, arms and legs. He should avoid the abdomen until all discomfort has resolved. 3) He can use ibuprofen together with an Omeprazole to control abdominal discomfort, when needed, and reduce inflammation 4) New diet plan: One Orgain protein shake (1 scoop in 8oz almond milk) at 7am- 9am, one Isopure Infusion protein shake (HALF scoop in 8oz water) at 10am-12pm, one Swedish yogurt with sukhi fruits or unsalted nuts) at 1pm-3pm, one Isopure Infusion protein shake (HALF scoop in 8oz water) at 4pm-6pm and dinner at 7pm (7 forkfuls of protein and 5 forkfuls of salad or vegetables or rice, or potatoes) Orders: Orders CT abdomen pelvis wo IV con Today R18.8 - Other ascites Coding Level of Care Code Est Pt Level 5 (71389) Diagnoses Abdominal fluid collection R18.8 Time Spent (min) 60
[2023-05-03 09:07] VITALS: BP 150/70; PULSE 64; TEMP 36.8; O2SAT 98; BMI 28.4
== END 2023-05-03 10:34 | disposition home or self-care (01) ==
PROVIDERS: PCP Internal Medicine; Visit Provider Surgery
DX: R18.8 Other ascites (principal)
CPT/HCPCS: 99215

== ENCOUNTER → 2023-05-03 08:55 | Outpatient (BNVA) | payer MEDICAID, SELFPAY | PROVIDERS: PCP Internal Medicine; Visit Provider Surgery | DX: R18.8 Other ascites (principal) | CPT/HCPCS: 99212 ==

== ENCOUNTER 2023-05-31 09:46 | Outpatient (AMB) | payer MEDICAID, SELFPAY ==
--- NOTE | 2023-05-29 14:52 | MHC.OFFVISWM ---
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 No new issues. He has mild discomfort at the suprapubic area Is doing one Orgain protein shake (1 scoop in 8oz almond milk) at 7am-9am, one Isopure Infusion protein shake (HALF scoop in 8oz water) at 10am-12pm, one Maltese yogurt with sukhi fruits or unsalted nuts) at 1pm-3pm, one Isopure Infusion protein shake (HALF scoop in 8oz water) at 4pm-6pm and dinner at 7pm (7 forkfuls of protein and 5 forkfuls of salad or vegetables or rice, or potatoes) No exercise yet PFSH Medical History Hx of low back pain Lumbar disc herniation Surgical History S/P panniculectomy H/O tooth extraction Hx of colonoscopy S/P laparoscopic sleeve gastrectomy Family History Father HTN (hypertension) DM (diabetes mellitus) Mother HTN (hypertension) Brother No problems noted. Brother No problems noted. Brother No problems noted. Brother No problems noted. Sister No problems noted. Son No problems noted. Social History Are you a primary vp care management to a significant other at home: No Do you presently have visiting nurse or other home services: No Alcohol intake: current Alcohol intake frequency: does not drink Patient Tobacco Use Status: Never used Tobacco Physical Exam Vital Signs: Last Vital Signs Temp 98.2 F 05/31/23 10:05 Pulse 71 05/31/23 10:05 BP 140/70 H 05/31/23 10:05 Pulse Ox 100 05/31/23 10:05 Oxygen Delivery Method Room Air 05/31/23 10:05 BMI result Body Mass Index 28.5 GI Inspection: Yes normal to inspection and Yes incision (WELL HEALED) Palpation (GI): Soft to palpation (mild firmness at the suprapubic area at the middle unchanged from last exam) Assessment & Plan Assessment & Plan (1) Abdominal fluid collection: Code(s): R18.8 - Other ascites Plan: 1) Emphasized the importance of continuing the diet plan exactly the same way to control the appetite and also ensure proper protein intake on a daily basis 2) Repeat CT abdomen/pelvis on 06/06/23 to confirm that there is no additional fluid collection accumulated. If the CT does not show and fluid collections, he can start exercise at the Gym doing treadmill, elliptical or stationary bike for 2000 calories. I recommended to increase slowly the intensity so he can sweat more, as this would reduce salt in his body. He can also do weight exercises with his chest, arms and legs. He should avoid the abdomen until all discomfort has resolved. 3) He can use ibuprofen together with an Omeprazole to control abdominal discomfort, when needed, and reduce inflammation 4) Continue same diet plan: One Orgain protein shake (1 scoop in 8oz almond milk) at 7am-9am, one Isopure Infusion protein shake (HALF scoop in 8oz water) at 10am-12pm, one Maltese yogurt with sukhi fruits or unsalted nuts) at 1pm-3pm, one Isopure Infusion protein shake (HALF scoop in 8oz water) at 4pm-6pm and dinner at 7pm (7 forkfuls of protein and 5 forkfuls of salad or vegetables or rice, or potatoes) (2) S/P panniculectomy: Comment: 09/22/22 Tae Morales MD Code(s): Z98.890 - Other specified postprocedural states Coding Level of Care Code Est Pt Level 4 (63766) Diagnoses Abdominal fluid collection R18.8 S/P panniculectomy Z98.890 Time Spent (min) 30 Comment With a Citizen Of [place] speaking intepreter
[2023-05-31 10:05] VITALS: BP 140/70; PULSE 71; TEMP 36.8; O2SAT 100; BMI 28.5
== END 2023-05-31 10:56 | disposition home or self-care (01) ==
PROVIDERS: PCP Internal Medicine; Visit Provider Surgery
DX: R18.8 Other ascites (principal); Z98.890 Other specified postprocedural states
CPT/HCPCS: 99214

== ENCOUNTER → 2023-05-31 09:46 | Outpatient (BNVA) | payer MEDICAID, SELFPAY | PROVIDERS: PCP Internal Medicine; Visit Provider Surgery | DX: R18.8 Other ascites (principal); Z98.890 Other specified postprocedural states | CPT/HCPCS: 99212 ==

== ENCOUNTER 2023-06-06 09:52 | Outpatient (REF) | payer MEDICAID, SELFPAY ==
--- NOTE | ~2023-06-06 | CT_ITS ---
EXAMINATION: CT ABDOMEN AND PELVIS WITHOUT CONTRAST CLINICAL INFORMATION: Ascites. COMPARISON: CT abdomen and pelvis 01/24/2023. CT pelvis 03/21/2023. TECHNIQUE: Multidetector volumetric imaging was performed from the superior aspect of the liver through the pubic symphysis. Sagittal and coronal reformatted images were obtained on the technologist's workstation. This CT examination was performed using dose optimization techniques as appropriate, variously including the following: *Automated exposure control *Adjustment of mA and/or kV according to patient size (this includes techniques or standardized protocols for targeted exams where dose is matched to indication/reason for exam; i.e. extremities or head) *Use of iterative reconstruction technique DLP: 524 mGy-cm FINDINGS: LUNG BASES: Calcified granuloma right lung base. No follow-up imaging is recommended. LIVER, GALLBLADDER, AND BILIARY TREE: The liver is normal in size, shape, and attenuation. No focal hepatic lesion or biliary ductal dilatation is present. The gallbladder is unremarkable with no evidence of radiopaque gallstones, gallbladder wall thickening, or obvious pericholecystic inflammatory changes. PANCREAS: Discrete mass. No ductal dilatation. SPLEEN: Normal size. ADRENAL GLANDS: No adrenal mass. KIDNEYS AND URETERS: The kidneys are normal in size, shape, and attenuation. No hydronephrosis, hydroureter, or calculi seen. No perinephric stranding. BLADDER: Unremarkable. GASTROINTESTINAL TRACT: Sleeve gastrectomy. The small bowel is normal in caliber. Minimal diverticulosis of the colon. ABDOMINAL WALL: Changes of panniculectomy. Significant scarring in the anterior pelvic superficial abdominal wall without a drainable fluid collection. LYMPH NODES: No adenopathy. VASCULAR: Unremarkable. PELVIC VISCERA: Unremarkable. OSSEOUS STRUCTURES: No suspicious osseous lesions. CT/CT abdomen pelvis wo IV con IMPRESSION: Chronic scarring in the superficial anterior pelvic wall consistent with prior panniculectomy. There is no drainable fluid collection. Fleischner guidelines do not apply (age 32).
== END 2023-06-06 09:53 | disposition home or self-care (01) ==
LOC: HO.CT 09:52
PROVIDERS: PCP Internal Medicine; Visit Provider Surgery
DX: R18.8 Other ascites (principal)
CPT/HCPCS: 74176

== ENCOUNTER 2023-11-24 10:09 | Outpatient (REF) | payer MEDICAID, SELFPAY ==
--- NOTE | ~2023-11-24 | XR_ITS ---
EXAM: XR RIGHT KNEE XR LEFT KNEE CLINICAL INFORMATION: Patient denies injury. Bilateral knee pain for 2 months. TECHNIQUE: 4 views of each knee. FINDINGS: RIGHT KNEE: Small suprapatellar effusion. Bone mineralization is normal. Joint spaces are preserved. Alignment is maintained. LEFT KNEE: Alignment is maintained. Bone mineralization is normal. Joint spaces are preserved. Small suprapatellar effusion. XR/XR knee RT 4V IMPRESSION: Small bilateral suprapatellar effusions.
--- NOTE | ~2023-11-24 | XR_ITS ---
EXAM: XR RIGHT KNEE XR LEFT KNEE CLINICAL INFORMATION: Patient denies injury. Bilateral knee pain for 2 months. TECHNIQUE: 4 views of each knee. FINDINGS: RIGHT KNEE: Small suprapatellar effusion. Bone mineralization is normal. Joint spaces are preserved. Alignment is maintained. LEFT KNEE: Alignment is maintained. Bone mineralization is normal. Joint spaces are preserved. Small suprapatellar effusion. XR/XR knee LT 4V IMPRESSION: Small bilateral suprapatellar effusions.
== END 2023-11-24 10:10 | disposition home or self-care (01) ==
LOC: HO.HHCX 10:09
PROVIDERS: Visit Provider Registered Nurse
DX: M25.561 Pain in right knee (principal); M25.562 Pain in left knee; G89.29 Other chronic pain
CPT/HCPCS: 73564

== ENCOUNTER 2025-09-02 09:54 | Outpatient (REF) | payer MEDICAID, SELFPAY ==
--- OUTSIDE RECORDS SUMMARY | 2025-08-29 12:00 | XMS_ITS | Encounter Summary ---
Author Organization [employer] Address [address] [facility] 7 [place] [address] Care Team Providers Care Ehs Teacher Name Role Phone Cindy Styles MD Primary Care Provider + Reason for Visit * Reason Comments sick visit Headaches Encounter Details Date Type Department Care Team ([facility] st Contact Info) Description 08/29/2025 12:00 PM EST Office Visit [facility] [address], [place] [phone] Cindy Styles MD [address] [place] [address] Essential hypertension (Primary Dx); S/P bariatric surgery; Screening examination for STI Social History Tobacco Use Types Packs/Day Years Used Date Smoking Tobacco: Never Passive Smoke Exposure: Never Smokeless Tobacco: Never Tobacco Cessation:Counseling Given: Not Answered Alcohol Use Standard Drinks/Week Comments Yes 0 (1 standard drink = 0.6 oz pur e alcohol) oca Alcohol Answer Date Recorded How often do you have a drink containing alcohol ? 0 08/29/2025 How many drinks containing a lcohol do you have on a typical day when you are drinking? 0 08/29/2025 How often do you have six or more drinks on one occasion? 0 08/29/2025 Depression Answer Date Recorded Patient Health Questionnaire-9 Score 7 07/30/2025 Patient Health Questionnaire-9 Score 7 07/30/2025 Last PHQ-9: Questionnaire Data Not on file 1 09/29/2024 Housing Stability Answer Date Recorded What is your housing situation today? I have merced zamora 07/30/[address] you li ve. Do you have problems with any of the following? None of the above 07/30/2025 Food Insecurity Answer Date Recorded Within the past 12 months, y ou worried that your food would run out before you got money to buy more: Never True 07/30/2025 Within the past 12 months,th e food you bought just didn't last and you didn't have enough money to get more: Never True Transportation Answer Date Recorded In the past 12 months, has l ack of transportation kept you from medical appts, meetings, work or from getting things needed for daily living? No 07/30/2025 Utilities Answer Date Recorded In the past 12 months, has t he electric, gas, oil or water company threatened to shut off services in your home? No 07/30/2025 Depression Answer Date Recorded Patient Health Questionnaire-2 Score 0 07/30/2025 Internet Access Answer Date Recorded Internet Access Q1 Yes 07/30/2025 Internet Access Q2 Not on file 07/30/2025 Sex and Gender Information Value Date Recorded Sex Assigned at Male 07/11/2022 10:33 AM EDT Legal Sex Male 10:33 AM EDT Gender Identity Male 07/11/2022 10:33 AM EDT Sexual Orientation Choose not to disclose 2021 10:33 AM EDT documented as of this encounter Last Filed Vital Signs Vital Sign Reading Time Taken Comments Blood Pressure 146/58 08/29/2025 12:03 PM EST Pulse 64 08/29/2025 12:03 PM EST Temperature 36.3 C (97.3 F) 08/29/2025 12:03 PM EST Respiratory Rate 14 08/29/2025 12:0 3 PM EST Oxygen Saturation - - Inhaled Oxygen Concentration - - Weight 92.4 kg (203 lb 12.8 oz) 025 12:03 PM EST Height 180.3 cm (5' 11 ) 08/29/2025 12: 03 PM EST Body Mass Index 28.42 08/29/2025 12:03 PM EST documented in this encounter Progress Notes * Cindy Styles MD - 08/29/2025 12:00 PM EST SUBJECTIVE: Cecilio Seay is a 35 y.o. year old male who presents for FU BP/SPARKS. Denies recent illness, injury, or hospitalization. - History of elevated blood pressure for about 2mo, no readings available, concerned re needs for meds. - Reports headaches associated with episodes of elevated blood pressure, his BP when asymptomatic is reportedly high as well but not as high - Headaches described as mild at present, sometimes accompanied by dizziness and sleepiness. Takes Elavil that has somewhat improved frequency of SPARKS (only 2- 3x/w) but make him very sleepy. - No mention of chest pain, BEARD or palpitations - had a brain MRI performed on 08/25 was wnl. Weight and Diet - Reports weight loss compared to previous visit - Has been following a diet for approximately one year to maintain weight - He had bariatric surgery approx 6-7y ago. Acute Concerns: Social History Social History Narrative Not on file Problem List[1] Family History[2] Review of Systems Constitutional: Positive for unexpected weight change. Negative for fever. HENT: Negative for congestion, ear pain, rhinorrhea and sore throat. Eyes: Negative for pain and discharge. Respiratory: Negative for cough and shortness of breath. Cardiovascular: Negative for chest pain. Gastrointestinal: Negative for abdominal pain, constipation, diarrhea and nausea. Endocrine: Negative for polydipsia. Genitourinary: Negative for dysuria and frequency. Musculoskeletal: Negative for arthralgias, back pain and neck pain. Neurological: Positive for headaches. Negative for dizziness and numbness. Psychiatric/Behavioral: Negative for agitation. OBJECTIVE: Vitals: 08/29/25 1203 BP: (!) 146/58 Pulse: 64 Resp: 14 Temp: 97.3 ??F (36.3 ??C) Physical Exam Constitutional: Appearance: Normal appearance. HENT: Right Ear: Tympanic membrane and ear canal normal. Left Ear: Tympanic membrane and ear canal normal. Mouth/Throat: Mouth: Mucous membranes are moist. Pharynx: No oropharyngeal exudate or posterior oropharyngeal erythema. Eyes: Pupils: Pupils are equal, round, and reactive to light. Cardiovascular: Rate and Rhythm: Normal rate and regular rhythm. Heart sounds: No murmur heard. Pulmonary: Breath sounds: Normal breath sounds. No wheezing. Abdominal: General: Bowel sounds are normal. Palpations: Abdomen is soft. Tenderness: There is no abdominal tenderness. Musculoskeletal: General: No tenderness. Normal range of motion. Cervical back: Normal range of motion. No tenderness. Skin: General: Skin is warm. Neurological: General: No focal deficit present. Mental Status: He is alert and oriented to person, place, and time. Psychiatric: Mood and Affect: Mood normal. Problem List Items Addressed This Visit Essential hypertension - Primary - It seems to be uncontrolled . - Initiate verapamil to be taken nightly at the same hour due to history migraines. -Discontinue Elavil. Monitor blood pressure at home, including when he's asymptomatic. -Obtain fasting blood tests prior to next visit. -FU w me in 4-6w Relevant Medications verapamil ER (Verelan PM) 100 MG 24 hr capsule Other Relevant Orders Basic Metabolic Panel CBC auto differential TSH with Reflex to Free T4 Lipid Panel with Reflex to Direct LDL Hemoglobin A1c S/P bariatric surgery C. 2017 Order vitamin levels and fu w me. Relevant Orders Vitamin B12/Folate, Serum Panel Ferritin Vitamin D, 25-Hydroxy, Total, Immunoassay Other Visit Diagnoses Screening examination for STI Relevant Orders Syphilis Screen HIV-1/2 Antigen and Antibodies, Fourth Generation, with Reflexes Hepatitis Panel, General This note was drafted using Ambient (AI) technology. The patient/patient's guardian has been informed and has consented to the use of this technology: Yes Follow up in about 4 weeks (around 09/26/2025) for fu BP/labs. Medications Ordered Prior to Encounter[3] [1] Patient Active Problem List Diagnosis Visual impairment Knee pain IFG (impaired fasting glucose) Hypertriglyceridemia Chronic low back pain Anxiety Abdominal wall seroma Dermatitis Essential hypertension S/P bariatric surgery [2] No family history on file. [3] Current Outpatient Medications on File Prior to Visit Medication Sig Dispense Refill amitriptyline (Elavil) 10 MG tablet Take 1 tablet (10 mg) by mouth at bedtime. 30 tablet 2 triamcinolone (Kenalog) 0.1 % cream Apply topically if needed in the morning and at bedtime (pain and swelling). 30 g 2 No current facility-administered medications on file prior to visit. documented in this encounter Miscellaneous Notes * Assessment & Plan Note - Cindy Styles MD - 08/29/2025 1:26 PM EST Associated Problem(s): S/P bariatric surgery C. 2017 Order vitamin levels and fu w me. * Assessment & Plan Note - Cindy Styles MD - 08/29/2025 1:25 PM EST Associated Problem(s): Essential hypertension - It seems to be uncontrolled . - Initiate verapamil to be taken nightly at the same hour due to history migraines. -Discontinue Elavil. Monitor blood pressure at home, including when he's asymptomatic. -Obtain fasting blood tests prior to next visit. -FU w me in 4-6w documented in this encounter Plan of Treatment Upcoming Encounters Date Type Department Care Team (Late st Contact Info) Description 10/22/2025 11:30 AM EST Office Visit [facility] [address], [place] [phone] Cindy Styles MD [address], [place] [phone] Scheduled Orders Name Type Priority Associated Diagnoses Orde r Schedule Basic Metabolic Panel Lab Routine Essential hypertension Expected: 08/29/2025 (Approximate), Expires: 08/29/2026 CBC auto differential Lab Routine Essential hypertension Expected: 08/29/2025 (Approximate), Expires: 08/29/2026 TSH with Reflex to Free T4 Lab Routine Essential hypertension Expected: 08/29/2025 (Approximate), Expires: 08/29/2026 Lipid Panel with Reflex to Direct LDL Lab Routine Essential hypertension Expected: 08/29/2025 (Approximate), Expires: 08/29/2026 Syphilis Screen Lab Routine Screening examination for STI Expected: 08/29/2025 (Approximate), Expires: 08/29/2026 HIV-1/2 Antigen and Antibodies, Fourth Generation, with Reflexes Lab Routine Screening examination for STI Expected: 08/29/2025 (Approximate), Expires: 08/29/2026 Hepatitis Panel, General Lab Routine Screening examination for STI Expected: 08/29/2025 (Approximate), Expires: 08/29/2026 Hemoglobin A1c Lab Routine Essential hypertension Expected: 08/29/2025 (Approximate), Expires: 08/29/2026 Vitamin B12/Folate, Serum Panel Lab Routine S/P bariatric surgery Expected: 08/29/2025, Expires: 08/29/2026 Ferritin Lab Routine S/P bariatric surgery Expected: 08/29/2025, Expires: 08/29/2026 Vitamin D, 25-Hydroxy, Total, Immunoassay Lab Routine S/P bariatric surgery Expected: 08/29/2025 (Approximate), Expires: 08/29/2026 documented as of this encounter Visit Diagnoses Diagnosis Essential hypertension- Primary Unspecified essential hypertension S/P bariatric surgery Screening examination for STI documented in this encounter Additional Health Concerns Assessment Noted Time PHQ-9 Depression Total Score: 7 07/30/20 25 3:17 PM EST documented as of this encounter Care Teams Ehs Teacher Relationship Specialty Start Date End Date Cindy Styles MD [address] [place] [phone] PCP - General Family Medicine 09/11/18 documented as of this encounter
--- OUTSIDE RECORDS SUMMARY | 2025-09-02 10:45 | XMS_ITS | Encounter Summary ---
Author Organization [facility] Address [address] [place] [id number] Care Team Providers Care Yarn Inspector Name Role Phone Cindy Styles MD Primary Care Provider + Encounter Details Date Type Department Care Team (Late st Contact Info) Description 09/20/2022 Telephone [facility] MEDICINE [address] [place] [phone] Cindy Styles MD [address] [place] [address] [phone] Social History Tobacco Use Types Packs/Day Years Used Date Smoking Tobacco: Never Assessed Sex and Gender Information Value Date Recorded Sex Assigned at Male 07/11/2022 10:33 AM EDT Legal Sex Male 10:33 AM EDT Gender Identity Male 07/11/2022 10:33 AM EDT Sexual Orientation Choose not to disclose 2021 10:33 AM EDT documented as of this encounter Plan of Treatment Upcoming Encounters Date Type Department Care Team (Late st Contact Info) Description 10/22/2025 11:30 AM EST Office Visit [facility] MEDICINE [address] [place] [phone] Cindy Styles MD [address] [place] [phone] documented as of this encounter Visit Diagnoses Not on filedocumented in this encounter Care Teams Yarn Inspector Relationship Specialty Start Date End Date Cindy Styles MD [address] [place] [phone] PCP - General Family Medicine 09/11/18 documented as of this encounter
--- OUTSIDE RECORDS SUMMARY | 2025-09-02 10:45 | XMS_ITS | Encounter Summary ---
Author Organization [employer] Address [address] [place] [address] 7 [place] [address] Care Team Providers Care Facility Assistant Name Role Phone Cindy Styles MD Primary Care Provider + Encounter Details Date Type Department Care Team (Latest Contact Info) Description 08/29/2025 Travel Social History Tobacco Use Types Packs/Day Years Used Date Smoking Tobacco: Never Passive Smoke Exposure: Never Smokeless Tobacco: Never Alcohol Use Standard Drinks/Week Comments Yes 0 [...] Description 10/22/2025 11:30 AM EST Office Visit [facility] MEDICINE [address] [place] [phone] Cindy Styles MD [address] [place] [phone] documented as of this encounter Visit Diagnoses Not on filedocumented in this encounter Additional Health Concerns Assessment Noted Time PHQ-9 Depression Total Score: 7 07/30/20 25 3:17 PM EST documented as of this encounter Care Teams Facility Assistant Relationship Specialty Start Date End Date Cindy Styles MD [address] [place] [phone] PCP - General Family Medicine 09/11/18 documented as of this encounter
--- OUTSIDE RECORDS SUMMARY | 2025-09-02 10:45 | XMS_ITS ---
Author Name [facility] Organization Unknown Care Team Organization Name Specialty Phone Email Start Date End Elijah worthington [facility], [facility], Primary Care 06/03/2021 024
--- OUTSIDE RECORDS SUMMARY | 2025-09-02 10:45 | XMS_ITS | Clinical Summary ---
Author Organization [employer] Address [address] [place] [address] 7 [place] [address] Care Team Providers Care Inspector Hairspring Truing Name Role Phone Cindy Styles MD Primary Care Provider + Allergies No known active allergies Medications triamcinolone (Kenalog) 0.1 % creamIndication s:Dermatitis Apply topically if needed in the morning and at bedtime (pain and swelling). 30 g 2 4 Active amitriptyline (Elavil) 10 MG tablet Take 1 tablet (10 mg) by mouth at bedtime. 30 tablet 2 5 10/28/19 26 Active Blood Pressure Monitoring (Blood Pressure Cuff) [facility] Use daily as prescribed 1 each 5 Active verapamil ER (Verelan PM) 100 MG 24 hr capsule Take 1 capsule (100 mg) by mouth at bedtime. Do not crush or chew. 30 capsule 11 08/29/2025 1:08 PM EST 5 08/29/20 26 Active naproxen (Naprosyn) 500 MG tablet Take 1 tablet (500 mg) by mouth if needed in the morning and at bedtime for mild pain or headaches for up to 20 days. 40 tablet 5 08/19/20 25 Active Problems Problem Noted Date Diagnosed Date Essential hypertension 08/29/2025 Assessment & Plan (08/29/2025 1:25 PM EST): - It seems to be uncontrolled . - Initiate verapamil to be taken nightly at the same hour due to history migraines. -Discontinue Elavil. Monitor blood pressure at home, including when he's asymptomatic. -Obtain fasting blood tests prior to next visit. -GAY duron in 4-6w S/P bariatric surgery 08/29/2025 Assessment & Plan (08/29/2025 1:26 PM EST): C. 2018 Order vitamin levels and fu w me. Abdominal wall seroma 01/12/2023 Assessment & Plan (01/12/2023 12:33 PM EDT): no envidence of infection, FU with surgery pt has a ct scan of the abdomen next week Dermatitis 01/12/2023 Assessment & Plan (01/12/2023 12:33 PM EDT): on LEs seems to be related to eczema use triamciniolone cream once per day + moisturizer cream and fu with me in 4 weeks for televisit. Chronic low back pain 12/27/2018 Visual impairment 09/28/2018 Knee pain 09/28/2018 IFG (impaired fasting glucose) 12/18/2017 Assessment & Plan (01/12/2023 12:33 PM EDT): last A1C in september 2022 is normal recommendedweight reduction I have discussed with patient regarding increasing physicial activity and decrease calorie intake I'll check FBS with next set of labs. To check RBS at next visit. FU with me next visit Hypertriglyceridemia 12/18/2017 Assessment & Plan (01/12/2023 12:34 PM EDT): Lipids on September 2022 are wnl recommended pt for weight reduction We discussed re rx options. She wants to be more strict with life style modifications. Recommended moderate amount of exercise and increased consumption of fruit, vegetables, fish and high fiber foods. We discussed about avoiding consumption of highly saturated fats or trans fats. FU lipids in 6m Anxiety 10/17/2017 Resolved Problems Problem Noted Date Diagnosed Date Resolved Date Obesity (BMI 35.0-39.9 without comorbidity) 12/27/2018 08/29/2025 Encounters Date Type Department Care Team Description 08/29/2025 12:00 PM EST Office Visit [address] [phone] Cindy Styles MD Essential hypertension (Primary Dx); S/P bariatric surgery; Screening examination for STI 08/29/2025 Travel 08/28/[address] [phone] Cindy Styles MD Insurance 08/25/2025 Results Follow-Up [address] [phone] Kurt Linn MD MR Brain w/o Contrast 07/30/2025 3:15 PM EST Office Visit [address] [phone] Kurt Linn MD Headache, unspecified headache type (Primary Dx); Vertigo 07/30/2025 Travel 07/29/[address] [address] Anette Silverio MA chart prep 07/28/[address] [phone] Cindy Styles MD Nurse Triage 07/07/[address] [phone] Cindy Styles MD Nurse Triage from Last 3 Months Immunizations Immunization Administration Dates Next Due Pfizer Covid-19 Vaccine 04/08/2021 Social History Tobacco Use Types Packs/Day Years [...] not to disclose 2021 10:33 AM EDT Last Filed Vital Signs Vital Sign Reading Time Taken Comments Blood Pressure 146/58 08/29/2025 12:03 PM EST Pulse 64 08/29/2025 12:03 PM EST Temperature 36.3 C (97.3 F) 08/29/2025 12:03 PM EST Respiratory Rate 14 08/29/2025 12:0 3 PM EST Oxygen Saturation 98% 07/30/2025 3:17 PM EST Inhaled Oxygen Concentration - - Weight 92.4 kg (203 lb 12.8 oz) 025 12:03 PM EST Height 180.3 cm (5' 11 ) 08/29/2025 12: 03 PM EST Body Mass Index 28.42 08/29/2025 12:03 PM EST Plan of Treatment Upcoming Encounters Date Type Department Care Team (Late st Contact Info) Description 10/22/2025 11:30 AM EST Office Visit [facility] [address] [place] [address] Cindy Styles MD [address] [place] [address] Health Maintenance Due Date Last Done Comments Family Planning (PISQ) 2006 HPV Vaccines (1 - Male 3-dos e series) 2006 Hepatitis C Screening 2009 DTaP/Tdap/Td Vaccines (1 - Tdap) 2010 Hepatitis B Vaccines (1 of 3 - 19+ 3-dose series) 2010 COVID-19 Vaccine (3 - 2024-2 6 season) 2025 05/18/2021, 04/08/2021 Influenza Vaccine (#1) 2025 Alcohol/Substance Use Screening 07/30/2026 07/30/2025 Depression Screening 07/30/2026 07/30/2025, 07/30/2025 Disability Screening 07/30/2026 07/30/2025 SDOH Screening 07/30/2026 07/30/2025 Tobacco Screening 08/29/2026 08/29/2025 Lipid Panel 08/17/2027 08/17/2022, 04/15/2021, 08/03/2020 Zoster Vaccines (1 of 2) 2041 RSV Patients and Patients Aged 60 years or older (1 - 1-dose 75+ series) 2066 HIV Screening Completed 04/15/2021 HIB Vaccines Aged Out No longer eligi ble based on patient's age to complete this topic Hepatitis A Vaccines Aged Out No long er eligible based on patient's age to complete this topic IPV Vaccines Aged Out No longer eligi ble based on patient's age to complete this topic Meningococcal B Vaccine Aged Out No l onger eligible based on patient's age to complete this topic Meningococcal Vaccine Aged Out No emily erika eligible based on patient's age to complete this topic Pneumococcal Vaccine: Pediatrics (0 to 5 Years) and At-Risk Patients (6 to 49) Years Aged Out No longer eligible b ased on patient's age to complete this topic RSV under 20 months Aged Out No longe r eligible based on patient's age to complete this topic Rotavirus Vaccines Aged Out No longer eligible based on patient's age to complete this topic Procedures Procedure Name Priority Date/Time Associated Diagnosis Comments MR BRAIN WO CONTRAST Routine 08/19/2025 Headache, unspecified headache type Vertigo LIPID PANEL, STANDARD Routine 08/17/2022 9:41 AM EST HIV 1/2 ANTIGEN/ANTIBODY, FOURTH GENERATION W/RFL Routine 04/15/2021 11:57 AM EDT from Last 3 Months or Most Recently Relevant to Health Maintenance Results * MR Brain w/o Contrast (08/19/2025) Anatomical Region Laterality Modality Brain Magnetic Resonan ce us Kurt Name MD GROSS MRI PROCEDURES Final Result * Lipid Panel, Standard (08/17/2022 9:41 AM EST) Triglycerides 63 mg/dL [facility] Comment:Desirable Triglyceri de: less than 150 mg/dLBorderline High Triglyceride 150-199 mg/dLHigh Triglyceride: 200-499 mg/dLVery High Triglyceride: greater than or equal to 5OO mg/dL Cholesterol 148 mg/dL [facility] Comment:Desirable Cholestero l: less than 200 mg/dLBorderline High Cholesterol: 200-239 mg/dLHigh Cholesterol: greater than 239 mg/dL LDL Cholesterol Calculated 79 mg/dl [facility] Comment:Desirable LDL: less than 100 mg/dLNear Optimal/Above Optimal LDL: 110- 129 mg/dLBorderline High LDL: 130-159 mg/dLHigh LDL: 160-189 mg/dLVery High LDL: greater than or equal to 190 mg/dL HDL Cholesterol 57 mg/dL [facility] Comment:Desirable HDL: great er than 40 mg/dL Note: This HDL assay may give artificially low results in patients with liver disease. 08/17/2022 9:41 AM EST 08/17/2022 9:41 AM EST [facility] External Provider LAB BLO OD ORDERABLES Final Result [facility] [address] [place] [address] [phone] * HIV 1/2 ANTIGEN/ANTIBODY,FOURTH GENERATION W/RFL (04/15/2021 11:57 AM EDT) HIV-1/2 ANTIGEN AND ANTIBODIES, 4TH GENERATION W/ REFLEX NON-REACT JARRET NON-REACT JARRET [facility] Comment: HIV-1 antigen and HIV-1/HIV-2 antibodies were not detected. There is no laboratory evidence of HIV infection. PLEASE NOTE: This information has been disclosed to you from records whose confidentiality may be protected by state law. If your state requires such protection, then the state law prohibits you from making any further disclosure of the information without the specific written consent of the person to whom it pertains, or as otherwise permitted by law. A general authorization for the release of medical or other information is NOT sufficient for this purpose. For additional information please refer to http://education.[employer]/faq/WUA497 (This link is being provided for informational/ educational purposes only.) The performance of this assay has not been clinically validated in patients less than 2 years old. 04/15/2021 11:5 7 AM EDT Cindy Styles MD LAB BLOOD ORDERABLES Fin al Result [facility] [address] from Last 3 Months or Most Recently Relevant to Health Maintenance Insurance [facility] Care Teams Inspector Hairspring Truing Relationship Specialty Start Date End Date Cindy Styles MD [address] [place] [phone] PCP - General Family Medicine 09/11/18
--- OUTSIDE RECORDS SUMMARY | 2025-09-02 10:45 | XMS_ITS | Encounter Summary ---
Author Organization [employer] Address [address] [place] [address] Care Team Providers Care Documentation Liaison Name Role Phone Cindy Styles MD Primary Care Provider + Reason for Visit * Reason Onset Date Comments Insurance 08/28/2025 Encounter Details Date Type Department Care Team ([facility] st Contact Info) Description 08/28/2025 Telephone [facility] MEDICINE [address], [place] [phone] Cindy Styles MD [address] [place] [phone] Insurance Social History Tobacco Use Types Packs/Day Years Used Date Smoking Tobacco: Never Smokeless Tobacco: Never Alcohol Use Standard [...] AM EDT documented as of this encounter Miscellaneous Notes * Telephone Encounter - Anny Cohen - 08/28/2025 2:09 PM EST Pt walked in and told me he spoke to insurance enrollment I scanned into social media sr strategy manager the paper they gave him which was proof of eligibility he is all set for his appointment tomorrow. * Telephone Encounter - Anny Cohen - 08/28/2025 1:16 PM EST Called patient to inform them of there appointment tomorrow and to let him know his insurance [employer] is inactive , patient said this happened last time and they had to reschedule his appointment he thought he fixed it but I told him its still showing inactive. I let him know he can call them directly or come to the second or third floor to speak to insurance enrollment. documented in this encounter Plan of Treatment Upcoming Encounters Date Type Department Care Team ([facility] st Contact Info) Description 10/22/2025 11:30 AM EST Office Visit [facility] MEDICINE [address] [place] [address] Cindy Styles MD [address] [place] [phone] documented as of this encounter Visit Diagnoses Not on filedocumented in this encounter Additional Health Concerns Assessment Noted Time PHQ-9 Depression Total Score: 7 07/30/20 25 3:17 PM EST documented as of this encounter Care Teams Documentation Liaison Relationship Specialty Start Date End Date Cindy Styles MD [address] [place] [phone] PCP - General Family Medicine 09/11/18 documented as of this encounter
--- OUTSIDE RECORDS SUMMARY | 2025-09-02 10:45 | XMS_ITS | Clinical Summary ---
Author Organization [facility] Address [address] [place] [address] Phone Care Team Providers Care Psychologist Research Assistant Name Role Phone Physician, No Pcp Primary Care Provider Unavaila ble Allergies No known active allergies Medications No known medications Encounters Date Type Department Care Team Description 08/19/2025 5:57 PM EST - 08/19/2025 11:59 PM EST Hospital Encounter [facility] MRI [address] [place] [address] Headache, unspecified Discharge Disposition: Home or Self Care 06/22/2025 1:01 PM EDT - 06/22/2025 2:16 PM EDT Emergency [facility] Emergency [address] [place] [address] Javi Adam MD Acute pain of left shoulder (Primary Dx) Discharge Disposition: Home or Self Care from Last 3 Months Social History Tobacco Use Types Packs/Day Years Used Date Smoking Tobacco: Never Smokeless Tobacco: Never Tobacco Cessation:Counseling Given: Not Answered Alcohol Use Standard Drinks/Week Comments Yes 0 (1 standard drink = 0.6 oz pur e alcohol) social Sex and Gender Information Value Date Recorded Sex Assigned at Not on file Legal Sex Male 9:03 AM EST Gender Identity Not on file Sexual Orientation Not on file Last Filed Vital Signs Vital Sign Reading Time Taken Comments Blood Pressure 111/69 06/22/2025 12:43 PM EDT Pulse 72 06/22/2025 12:43 PM EDT Temperature 36.9 C (98.4 F) 06/22/2025 12:43 PM EDT Respiratory Rate 16 06/22/2025 12:43 PM EDT Oxygen Saturation 98% 06/22/2025 12:43 PM EDT Inhaled Oxygen Concentration - - Weight 90.7 kg (200 lb) 06/22/2025 12:43 PM EDT Height 182.9 cm (6') 06/22/2025 12:43 PM EDT Body Mass Index 27.12 06/22/2025 12:43 PM EDT Plan of Treatment Health Maintenance Due Date Last Done Comments DTaP,Tdap,and Td Vaccines (1 - Tdap) 2010 Hepatitis B Vaccines (1 of 3 - 19+ 3-dose series) 2010 HPV Vaccines (1 - 3-dose SCD M series) 2018 Depression Screening 09/11/2024 COVID-19 Vaccine (3 - 2024-2 6 season) 2025 05/18/2021, 04/08/2021 Influenza Vaccine (#1) 2025 Hepatitis C Screening 06/22/2025 Social Influencers of Health Screening 06/22/2025 Cholesterol Screening (Lipid Panel) 08/17/2027 08/17/2022 RSV Immunization Adult Patients (1 - 1-dose 75+ series) 2066 HIV Screening Completed 04/15/2021 HIB Vaccines Aged Out No longer eligi ble based on patient's age to complete this topic Hepatitis A Vaccines Aged Out No long er eligible based on patient's age to complete this topic IPV Vaccines Aged Out No longer eligi ble based on patient's age to complete this topic MMR Vaccines Aged Out No longer eligi ble based on patient's age to complete this topic Meningococcal ACWY Vaccine Aged Out N o longer eligible based on patient's age to complete this topic Meningococcal B Vaccine Aged Out No l onger eligible based on patient's age to complete this topic Pneumococcal Vaccine: Pediatrics (0 to 5 Years) and At-Risk Patients (6 to 49 Years) Aged Out No longer eligible b ased on patient's age to complete this topic RSV Immunization Patients Under 20 months Aged Out No longer eligible b ased on patient's age to complete this topic Varicella Vaccines Aged Out No longer eligible based on patient's age to complete this topic Procedures Procedure Name Priority Date/Time Associated Diagnosis Comments MR BRAIN WO CONTRAST Routine 08/19/2025 7:18 PM EST Headache, unspecified XR SHOULDER 2+ VIEWS LEFT STAT 06/22/2025 12:59 PM EDT from Last 3 Months Results * MR Brain wo Contrast (08/19/2025 7:18 PM EST) Anatomical Region Laterality Modality Head and Neck Magnetic Resonan ce 08/25/2025 1:29 PM EST Impressions 08/25/2025 1:40 PM EST Normal MRI appearance of the brain. -------- FINAL REPORT -------- Dictated By: Jj Serrano Dictated Date: 08/25/2025 13:29 ET Assigned Physician: Jj Serrano Reviewed and Electronically Signed By: Jj Serrano Signed Date: 08/25/2025 13:40 ET Workstation ID: [id number] Transcribed By: Self Edit Transcribed Date: 08/25/2025 13:33 ET Narrative 08/25/2025 1:40 PM EST PROCEDURE: Noncontrast MRI of the brain. HISTORY: headaches. COMPARISON: None. TECHNIQUE: Multiplanar multisequence MRI of the brain without intravenous contrast administration. FINDINGS: BRAIN: No diffusion abnormality. No mass or extra-axial fluid collection. No hydrocephalus. The major intracranial flow voids are preserved. Age commensurate ventricles and sulci. ORBITS: Normal. SINUSES/MASTOIDS: Normal. CALVARIUM: Normal. OTHER: The visualized skull base soft tissues are normal. Procedure Note Jj Serrano MD - 08/25/2025 PROCEDURE: Noncontrast MRI of the brain. HISTORY: headaches. COMPARISON: None. TECHNIQUE: Multiplanar multisequence MRI of the brain without intravenouscontrast administration. FINDINGS: BRAIN: No diffusion abnormality. No mass or extra-axial fluid collection.No hydrocephalus. The major intracranial flow voids are preserved. Agecommensurate ventricles and sulci. ORBITS: Normal. SINUSES/MASTOIDS: Normal. CALVARIUM: Normal. OTHER: The visualized skull base soft tissues are normal. IMPRESSION: Normal MRI appearance of the brain. -------- FINAL REPORT -------- Dictated By: Jj Serrano Dictated Date: 08/25/2025 13:29 ET Assigned Physician: Jj Serrano Reviewed and Electronically Signed By: Jj Serrano Signed Date: 08/25/2025 13:40 ET Workstation ID: [id number] Transcribed By: Self Edit Transcribed Date: 08/25/2025 13:33 ET us Kurt Name IMG MRI PROCEDURES Final Result * XR Shoulder 2+ Views Left (06/22/2025 12:59 PM EDT) Anatomical Region Laterality Modality Upper Extremities, Shoulder Left Radi ographic Imaging 06/22/2025 1:04 PM EDT Impressions 06/22/2025 1:05 PM EDT No shoulder fracture or dislocation. [id number] -------- FINAL REPORT -------- Dictated By: Judson Madrigal Dictated Date: 06/22/2025 13:04 ET Assigned Physician: Judson Madrigal Reviewed and Electronically Signed By: Judson Madrigal Signed Date: 06/22/2025 13:05 ET Workstation ID: [id number] Transcribed By: Self Edit Transcribed Date: 06/22/2025 13:04 ET Narrative 06/22/2025 1:05 PM EDT INDICATION: Shoulder pain after fall yesterday FINDINGS: Minimum of 2 views of the right shoulder were obtained. No prior studies available for comparison. No fracture or dislocation. No radiopaque foreign body or periosteal reaction is noted. No significant soft tissue abnormality. Procedure Note Judson Madrigal MD - 06/22/2025 INDICATION: Shoulder pain after fall yesterday FINDINGS: Minimum of 2 views of the right shoulder were obtained. No priorstudies available for comparison. No fracture or dislocation. No radiopaque foreign body or periostealreaction is noted. No significant soft tissue abnormality. IMPRESSION: No shoulder fracture or dislocation. [id number] -------- FINAL REPORT -------- Dictated By: Judson Madrigal Dictated Date: 06/22/2025 13:04 ET Assigned Physician: Judson Madrigal Reviewed and Electronically Signed By: Judson Madrigal Signed Date: 06/22/2025 13:05 ET Workstation ID: [id number] Transcribed By: Self Edit Transcribed Date: 06/22/2025 13:04 ET Bashir Licea MD IMG XR PROCEDURES Final Result from Last 3 Months Insurance MEDICAID - [place] Care Teams Psychologist Research Assistant Relationship Specialty Start Date End Date Physician, No Pcp PCP - General 06/22/25
--- OUTSIDE RECORDS SUMMARY | 2025-09-02 10:45 | XMS_ITS | Encounter Summary ---
Author Organization [employer] [facility] Address [address] [place] [id number] Care Team Providers Care Aeronautical Engineering Teacher Name Role Phone Cindy Styles MD Primary Care Provider + Reason for Visit * Reason Onset Date Comments Appointment Request 12/06/2022 Encounter Details Date Type Department Care Team (Late st Contact Info) Description 12/06/2022 Telephone [facility] MEDICINE [address] [place] [phone] Cindy Styles MD [address] [place] [phone] Appointment Request Social History Tobacco Use Types Packs/Day Years Used Date Smoking Tobacco: Never Assessed Sex and Gender Information Value Date Recorded Sex Assigned at Male 07/11/2022 10:33 AM EDT Legal Sex Male 10:33 AM EDT Gender Identity Male 07/11/2022 10:33 AM EDT Sexual Orientation Choose not to disclose 2021 10:33 AM EDT documented as of this encounter Miscellaneous Notes * Telephone Encounter - Murray Huang - 12/06/2022 3:29 PM EDT Tc from pt requesting an appt with Provider. Pt was not clear in why appt was needed. Please contact pt at [phone] documented in this encounter Plan of Treatment Upcoming Encounters Date Type Department Care Team (Late st Contact Info) Description 10/22/2025 11:30 AM EST Office Visit [facility] MEDICINE [address] [place] [phone] Cindy Styles MD [address] [place] [address] documented as of this encounter Visit Diagnoses Not on filedocumented in this encounter Care Teams Aeronautical Engineering Teacher Relationship Specialty Start Date End Date Cindy Styles MD [address] [place] [phone] PCP - General Family Medicine 09/11/18 documented as of this encounter
[2025-09-02 11:37] LABS: NRBC Abs Auto 0.000 X10*3/uL (0.0-0.012); NRBC Pct Auto 0.0 /100WBC (0.0-0.2); PLT CLUMP 1; Red Blood Count 5.00 X10*6/uL (4.60-5.80); SCAN SMEAR FLAG 1
[2025-09-02 11:39] LABS: Hematocrit 40.2 % (42.0-52.0); Hemoglobin 13.9 g/dl (14.0-18.0); Imm Gran Abs Auto 0.01 X10*3/uL (0.00-0.03); Imm Gran Pct Auto 0.2 % (0.0-0.4); Lymphocytes Absolute Auto 1.3 X10*3/uL (1.2-4.9); MANUAL DIFF FLAG SCAN; Mean Corpuscular HGB Conc 34.6 g/dl (31.0-36.0); Mean Corpuscular Hemoglobin 27.8 pg (27.0-33.0); Mean Corpuscular Volume 80.4 fL (80.0-98.0)
[2025-09-02 12:01] LABS: Anion Gap 12 (12-20); Blood Urea Nitrogen 9 mg/dL (9-16); Calcium 9.3 mg/dL (8.4-10.2); Carbon Dioxide 27 mmol/L (22-29); Chloride 106 mmol/L (96-108); Cholesterol 146 mg/dL (<200); Estimated Glomerular Filt Rate > 60; HDL Cholesterol 59 mg/dL (>40); Potassium 4.0 mmol/L (3.3-5.1); Sodium 141 mmol/L (135-145); Triglycerides 59 mg/dL (<150)
[2025-09-02 12:14] LABS: HBS Num1 16.83 mIU/mL (0-7.99); HBc Num1 0.06 S/CO (0.00-0.79); HBsAGNum1 0.35 S/CO (0.00-0.99); HIV Num 1 0.06 S/CO (0.00-0.99); Hepatitis A Antibody IgM 0.15 Index (0-0.79); Hepatitis B Surface Antigen Negative (Negative); ~HepC Num1 0.09 S/CO (0.00-0.79); ~Hepatitis A Antibody IgM Nonreactive (Nonreactive); ~Hepatitis B Surface Antibody REACTIVE (Nonreactive); ~Hepatitis C Antibody Nonreactive (Nonreactive)
[2025-09-02 12:20] LABS: Folate 10.4 ng/mL (> or = 4.0); Syphilis Screen Nonreactive (Nonreactive); Vitamin B12 826 pg/mL (200-900)
[2025-09-02 12:27] LABS: Ferritin 99 ng/mL (20-250)
[2025-09-02 12:35] LABS: White Blood Count 4.8 X10*3/uL (4.8-10.8)
[2025-09-02 13:28] LABS: Reflex LDLD? No
== END 2025-09-02 09:55 | disposition home or self-care (01) ==
LOC: HO.HHCL 09:54
PROVIDERS: PCP Internal Medicine; Visit Provider Internal Medicine
DX: I10 Essential (primary) hypertension (principal); Z11.3 Encounter for screening for infections with a predominantly sexual mode of transmission; Z98.84 Bariatric surgery status; Z11.4 Encounter for screening for human immunodeficiency virus [HIV]; Z11.59 Encounter for screening for other viral diseases
CPT/HCPCS: 36415; 80048; 80061; 82306; 82607; 82728; 82746; 83036; 84443; 85025; 86704; 86706; 86709; 86780; 86803; 87340; 87389